=== PATIENT | female | born 1940 | race African-American/Black ===

== ENCOUNTER 2017-11-01 09:14 | Inpatient (IN) ==
[2017-11-01 10:49] LABS: Basophils % 0.2 % (0.0-0.8); Hematocrit 27.4 VOL% (35.7-47.0); Hemoglobin 7.9 GM/DL (12.0-16.0); Immature Granulocytes % 0.5 %; Immature Granulocytes Absolute 0.05 #; Lymphocytes # 0.8 10*3/uL (1.4-4.0); Lymphocytes % 7.5 % (21.3-54.2); Mean Corpuscular HGB Conc 28.8 GM/DL (32-36); Mean Corpuscular Hemoglobin 23 PG (27-34); Mean Corpuscular Volume 79.9 FL (87-102); Mean Platelet Volume 11.6 FL (9.6-12.0); Monocytes # 0.3 10*3/uL (0.11-0.8); Monocytes % 3.1 % (1.7-12.7); Neutrophils # 9.8 10*3/uL (1.4-7.4); Neutrophils % 88.7 % (38.7-73.9); Platelet Count 252 T/CUMM (130-400); Red Blood Count 3.43 MC/CUMM (3.8-5.5); Red Cell Distribution Width 16.1 % (9.3-17.3)
[2017-11-01 10:51] LABS: Apearance,Urine Slightly Hazy (Clear); Bacteria,Urine Occasional /HPF (Few); Bilirubin,Urine Negative (Negative); Blood, Urine Small mg/dL (Negative); Glucose,Urine (UA) >=500 mg/dL (Negative); Hyaline Casts,Urine 1 /LPF (0-3); Ketones,Urine Negative (Negative); Mucus,Urine Occasional /LPF (Occasional); Nitrite,Urine Negative (Negative); Protein,Urine 100 MG/DL; RBC,Urine 5 /HPF (0-4); Squamous Epithelial Cell,Urine Occasional /HPF (0-10); Urine Color Yellow (Yellow); Urine Specific Gravity 1.012 (1.001-1.035); Urine Urobilinogen < 2.0 EU/DL (0.2-1.0); WBC,Urine 3 /HPF (0-6)
[2017-11-01 11:16] LABS: Giant Platelets Few; Hypochromasia 1+; Platelet Estimate Normal
[2017-11-01 11:17] LABS: Microcytosis 1+; Polychromasia Few
[2017-11-01 11:19] LABS: Albumin 3.2 G/DL (3.4-5.0); Bilirubin,Total 0.6 MG/DL (0.2-1.0); Calcium 9.2 MG/DL (8.5-10.1); Osmolality,Calculated 290.7 MOS/KG (273-304); Potassium 4.6 MMOL/L (3.5-5.1); Total Protein 7.3 G/DL (6.4-8.3)
[2017-11-01 19:04] LABS: % Iron Saturation 4.7 % (18-50); Ferritin 7.5 ng/ml (8-252)
[2017-11-02 03:23] LABS: Basophils % 0.2 % (0.0-0.8); Hematocrit 19.9 VOL% (35.7-47.0); Immature Granulocytes % 0.6 %; Immature Granulocytes Absolute 0.06 #; Lymphocytes # 1.5 10*3/uL (1.4-4.0); Lymphocytes % 14.7 % (21.3-54.2); Mean Corpuscular HGB Conc 30.2 GM/DL (32-36); Mean Corpuscular Hemoglobin 23 PG (27-34); Mean Corpuscular Volume 76.2 FL (87-102); Mean Platelet Volume 11.7 FL (9.6-12.0); Monocytes # 0.9 10*3/uL (0.11-0.8); Monocytes % 8.5 % (1.7-12.7); NRBC # 0.02 10*3/uL; Neutrophils # 7.9 10*3/uL (1.4-7.4); Platelet Count 213 T/CUMM (130-400); Red Blood Count 2.61 MC/CUMM (3.8-5.5); Red Cell Distribution Width 16.4 % (9.3-17.3); White Blood Count 10.5 T/CUMM (4-12)
[2017-11-02 04:05] LABS: Troponin I Only 0.059 NG/ML (0.00-0.045)
[2017-11-02 04:14] LABS: Calcium 8.5 MG/DL (8.5-10.1); Osmolality,Calculated 280.5 MOS/KG (273-304); Potassium 4.1 MMOL/L (3.5-5.1)
[2017-11-02 04:18] LABS: Troponin I Only 0.064 NG/ML (0.00-0.045)
[2017-11-02 04:50] LABS: Basophils % 0.2 % (0.0-0.8); Hematocrit 20.4 VOL% (35.7-47.0); Immature Granulocytes % 0.8 %; Immature Granulocytes Absolute 0.08 #; Lymphocytes # 1.5 10*3/uL (1.4-4.0); Lymphocytes % 14.5 % (21.3-54.2); Mean Corpuscular HGB Conc 29.9 GM/DL (32-36); Mean Corpuscular Hemoglobin 23 PG (27-34); Mean Corpuscular Volume 76.7 FL (87-102); Mean Platelet Volume 11.3 FL (9.6-12.0); Monocytes # 0.9 10*3/uL (0.11-0.8); Monocytes % 8.7 % (1.7-12.7); NRBC # 0.02 10*3/uL; Neutrophils # 7.8 10*3/uL (1.4-7.4); Neutrophils % 75.8 % (38.7-73.9); Platelet Count 201 T/CUMM (130-400); Red Blood Count 2.66 MC/CUMM (3.8-5.5); Red Cell Distribution Width 16.5 % (9.3-17.3); White Blood Count 10.2 T/CUMM (4-12)
[2017-11-02 05:02] LABS: Hemoglobin 6.1 GM/DL (12.0-16.0)
[2017-11-02 06:40] LABS: Band Neutrophils 1 % (0-10); Hypochromasia 2+; Lymphocytes 20 % (20-55); Microcytosis 2+; Segmented Neutrophils 75 % (50-85); Tear Drop Cells Slight; Total Cells Counted 100
[2017-11-02 06:41] LABS: Ovalocytes Slight; Platelet Estimate Normal
[2017-11-02 08:34] LABS: Troponin I Only 0.052 NG/ML (0.00-0.045)
[2017-11-02 15:46] LABS: Hematocrit 27.7 VOL% (35.7-47.0)
[2017-11-02 15:49] LABS: Hemoglobin 8.5 GM/DL (12.0-16.0)
[2017-11-02 16:27] LABS: Apearance,Urine CLEAR (Clear); Bilirubin,Urine Negative (Negative); Blood, Urine Negative (Negative); Glucose,Urine (UA) Negative (Negative); Ketones,Urine Negative (Negative); Mucus,Urine Occasional /LPF (Occasional); Nitrite,Urine Negative (Negative); Protein,Urine Negative; Urine Color Straw (Yellow); Urine Specific Gravity 1.004 (1.001-1.035); Urine Urobilinogen < 2.0 EU/DL (0.2-1.0); WBC,Urine <1 /HPF (0-6)
[2017-11-03 04:55] LABS: Basophils % 0.4 % (0.0-0.8); Hematocrit 26.4 VOL% (35.7-47.0); Hemoglobin 8.3 GM/DL (12.0-16.0); Immature Granulocytes % 0.6 %; Immature Granulocytes Absolute 0.06 #; Lymphocytes # 1.5 10*3/uL (1.4-4.0); Lymphocytes % 15.9 % (21.3-54.2); Mean Corpuscular HGB Conc 31.4 GM/DL (32-36); Mean Corpuscular Hemoglobin 24 PG (27-34); Mean Corpuscular Volume 76.5 FL (87-102); Mean Platelet Volume 11.3 FL (9.6-12.0); Monocytes # 0.7 10*3/uL (0.11-0.8); Monocytes % 7.9 % (1.7-12.7); NRBC # 0.03 10*3/uL; Neutrophils % 75.2 % (38.7-73.9); Platelet Count 198 T/CUMM (130-400); Red Blood Count 3.45 MC/CUMM (3.8-5.5); Red Cell Distribution Width 15.7 % (9.3-17.3); White Blood Count 9.4 T/CUMM (4-12)
[2017-11-03 05:19] LABS: Calcium 8.7 MG/DL (8.5-10.1); Potassium 3.6 MMOL/L (3.5-5.1)
[2017-11-03 05:24] LABS: Risk Ratio 2.68; VLDL CHOLESTEROL 21.6 MG/DL
[2017-11-04 06:36] LABS: Basophils % 0.4 % (0.0-0.8); Eosinophils % 0.1 % (0.00-10.9); Hematocrit 33.3 VOL% (35.7-47.0); Immature Granulocytes % 0.5 %; Immature Granulocytes Absolute 0.05 #; Lymphocytes # 1.2 10*3/uL (1.4-4.0); Lymphocytes % 13.2 % (21.3-54.2); Mean Corpuscular HGB Conc 31.8 GM/DL (32-36); Mean Corpuscular Hemoglobin 25 PG (27-34); Mean Corpuscular Volume 79.3 FL (87-102); Mean Platelet Volume 10.6 FL (9.6-12.0); Monocytes # 0.9 10*3/uL (0.11-0.8); Monocytes % 9.3 % (1.7-12.7); NRBC # 0.02 10*3/uL; Neutrophils # 7.1 10*3/uL (1.4-7.4); Neutrophils % 76.5 % (38.7-73.9); Platelet Count 184 T/CUMM (130-400); Red Cell Distribution Width 15.3 % (9.3-17.3); White Blood Count 9.3 T/CUMM (4-12)
[2017-11-04 06:45] LABS: Calcium 8.6 MG/DL (8.5-10.1); Osmolality,Calculated 267.2 MOS/KG (273-304); Potassium 4.1 MMOL/L (3.5-5.1)
[2017-11-04 06:56] LABS: Hemoglobin 10.6 GM/DL (12.0-16.0)
[2017-11-05 04:57] LABS: Basophils # 0.1 10*3/uL (0.0-0.2); Basophils % 0.6 % (0.0-0.8); Eosinophils # 0.1 10*3/uL (0.0-0.87); Eosinophils % 0.9 % (0.00-10.9); Hematocrit 36.7 VOL% (35.7-47.0); Hemoglobin 11.3 GM/DL (12.0-16.0); Immature Granulocytes % 0.5 %; Immature Granulocytes Absolute 0.04 #; Lymphocytes # 1.3 10*3/uL (1.4-4.0); Lymphocytes % 16.5 % (21.3-54.2); Mean Corpuscular HGB Conc 30.8 GM/DL (32-36); Mean Corpuscular Hemoglobin 25 PG (27-34); Mean Corpuscular Volume 81.4 FL (87-102); Mean Platelet Volume 10.9 FL (9.6-12.0); Monocytes # 0.9 10*3/uL (0.11-0.8); Monocytes % 11.8 % (1.7-12.7); Neutrophils # 5.5 10*3/uL (1.4-7.4); Neutrophils % 69.7 % (38.7-73.9); Platelet Count 213 T/CUMM (130-400); Red Blood Count 4.51 MC/CUMM (3.8-5.5); Red Cell Distribution Width 15.7 % (9.3-17.3); White Blood Count 7.9 T/CUMM (4-12)
[2017-11-05 05:22] LABS: Calcium 8.8 MG/DL (8.5-10.1); Osmolality,Calculated 268.2 MOS/KG (273-304); Potassium 4.2 MMOL/L (3.5-5.1)
[2017-11-05 13:23] VITALS: BP 159/66
== END 2017-11-05 15:45 | DRG 392 ==
LOC: N.ED 09:14 → N.EDINP 11:48 → N.2W 12:44 → N.ICU 17:48 → N.TELEN 11-03 16:13
PROVIDERS: ADMIT Internal Medicine; ATTEND Internal Medicine

== ENCOUNTER 2018-02-21 17:54 | Inpatient (IN) ==
[2018-02-21] MEDS ORDERED: KETOROLAC 30 MG/1 ML VIAL IV STA (20:26)
[2018-02-21 22:34] LABS: Basophils % 0.2 % (0.0-0.8); Hematocrit 38.8 VOL% (35.7-47.0); Hemoglobin 12.1 GM/DL (12.0-16.0); Immature Granulocytes % 0.5 %; Immature Granulocytes Absolute 0.09 #; Lymphocytes # 0.6 10*3/uL (1.4-4.0); Lymphocytes % 3.6 % (21.3-54.2); Mean Corpuscular HGB Conc 31.2 GM/DL (32-36); Mean Corpuscular Hemoglobin 27 PG (27-34); Mean Platelet Volume 10.4 FL (9.6-12.0); Monocytes # 0.9 10*3/uL (0.11-0.8); Monocytes % 5.3 % (1.7-12.7); Neutrophils % 90.4 % (38.7-73.9); Platelet Count 171 T/CUMM (130-400); Red Blood Count 4.51 MC/CUMM (3.8-5.5); Red Cell Distribution Width 13.7 % (9.3-17.3); White Blood Count 17.7 T/CUMM (4-12)
[2018-02-21 23:05] LABS: Band Neutrophils 1 % (0-10); Lymphocytes 2 % (20-55); Platelet Estimate Normal; Segmented Neutrophils 93 % (50-85); Total Cells Counted 100
[2018-02-21 23:20] LABS: Albumin 3.5 G/DL (3.4-5.0); Apearance,Urine Slightly Hazy (Clear); Bacteria,Urine Occasional /HPF (Few); Bilirubin,Total 1.5 MG/DL (0.2-1.0); Bilirubin,Urine Negative (Negative); Blood, Urine Large mg/dL (Negative); Calcium 9.7 MG/DL (8.5-10.1); Glucose,Urine (UA) 50 mg/dL (Negative); Ketones,Urine 5 mg/dL (Negative); Mucus,Urine Occasional /LPF (Occasional); Nitrite,Urine Negative (Negative); Osmolality,Calculated 283.7 MOS/KG (273-304); Potassium 3.8 MMOL/L (3.5-5.1); Protein,Urine >=500 MG/DL; RBC,Urine 5 /HPF (0-4); Total Protein 7.7 G/DL (6.4-8.3); Urine Color Yellow (Yellow); Urine Specific Gravity 1.018 (1.001-1.035); Urine Urobilinogen < 2.0 EU/DL (0.2-1.0); WBC,Urine <1 /HPF (0-6)
[2018-02-22] MEDS ORDERED: DILTIAZEM 50 MG/10 ML VIAL IV STA ×2 (00:28→01:41)
[2018-02-22] MEDS ORDERED: DILTIAZEM 25 MG/5 ML VIAL IV ONE ×2 (00:36→00:41)
[2018-02-22] MEDS ORDERED: ONDANSETRON 4 MG/2 ML VIAL IV PRN (01:43)
[2018-02-22] MEDS ORDERED: PROMETHAZINE 25 MG/1 ML VIAL IM PRN (01:43)
[2018-02-22] MEDS ORDERED: PROMETHAZINE 25 MG TABLET PO PRN (01:43)
[2018-02-22] MEDS: dilTIAZem Drip 125 MG/125 ML PREMIX IV SCH (05:30)
[2018-02-22] MEDS: SODIUM CHLORIDE 0.9% 1,000 ML IV SCH ×2 (05:30→19:55)
[2018-02-22] MEDS ORDERED: DIGOXIN 0.5 MG/2 ML AMP IV ONE (08:14)
[2018-02-22] MEDS ORDERED: DEXTROSE 50% 25 GM/50 ML VIAL IV PRN (08:38)
[2018-02-22] MEDS ORDERED: GLUCAGON 1 MG VIAL IM PRN (08:38)
[2018-02-22 09:00] LABS: Basophils % 0.1 % (0.0-0.8); Hematocrit 36.9 VOL% (35.7-47.0); Hemoglobin 11.7 GM/DL (12.0-16.0); Immature Granulocytes % 0.6 %; Lymphocytes # 0.7 10*3/uL (1.4-4.0); Lymphocytes % 3.9 % (21.3-54.2); Mean Corpuscular HGB Conc 31.7 GM/DL (32-36); Mean Corpuscular Hemoglobin 28 PG (27-34); Mean Corpuscular Volume 86.6 FL (87-102); Mean Platelet Volume 11.4 FL (9.6-12.0); Monocytes # 0.7 10*3/uL (0.11-0.8); Monocytes % 3.9 % (1.7-12.7); Neutrophils # 15.6 10*3/uL (1.4-7.4); Neutrophils % 91.5 % (38.7-73.9); Platelet Count 148 T/CUMM (130-400); Red Blood Count 4.26 MC/CUMM (3.8-5.5)
[2018-02-22] MEDS ORDERED: NYSTATIN POWDER 15 GM BOTTLE TOP SCH (09:00)
[2018-02-22] MEDS: PANTOPRAZOLE 40 MG VIAL IV SCH (09:15)
[2018-02-22] MEDS: DOCUSATE SODIUM 100 MG CAPSULE PO SCH ×2 (09:16→22:32)
[2018-02-22 09:23] LABS: Band Neutrophils 3 % (0-10); Hypochromasia 1+; Lymphocytes 2 % (20-55); Platelet Estimate Normal; Segmented Neutrophils 90 % (50-85); Total Cells Counted 100
[2018-02-22 09:28] LABS: Calcium 9.3 MG/DL (8.5-10.1); Osmolality,Calculated 286.5 MOS/KG (273-304); Potassium 3.6 MMOL/L (3.5-5.1)
[2018-02-22 09:35] LABS: Troponin I 0.104 NG/ML (0.00-0.045)
[2018-02-22] MEDS: VANCOMYCIN INJ 1,250 MG in SODIUM CHLORIDE 0.9% 250 ML IV SCH ×2 (11:11→22:37)
[2018-02-22] MEDS: ASPIRIN EC 81 MG TABLET PO SCH (11:15)
[2018-02-22] MEDS: SOTALOL 80 MG TABLET PO SCH (11:15)
[2018-02-22] MEDS: FOSINOPRIL 10 MG TABLET PO SCH (13:22)
[2018-02-22] MEDS: INSULIN LISPRO 100 UNIT/ML SUBCUT SCH ×3 (13:23→22:33)
[2018-02-22] MEDS: PRIMIDONE 50 MG TABLET PO SCH ×2 (14:47→22:31)
[2018-02-22] MEDS: ACETAMINOPHEN 325 MG TABLET PO PRN (14:48)
[2018-02-22] MEDS: CARBIDOPA/LEVODOPA 25-100 MG TABLET PO SCH ×2 (14:49→22:32)
[2018-02-22] MEDS ORDERED: CHLORHEXIDINE 4% SOLN 118 ML BOTTLE TOP ONE (16:07)
[2018-02-22] MEDS ORDERED: SKIN HEALING OINT (AQUAPHOR) 50 GM TUBE TOP PRN (17:23)
[2018-02-22] MEDS: MUPIROCIN 2% OINT 22 GM TUBE TOP SCH (18:51)
[2018-02-22] MEDS: CLOTRIMAZOLE 1% CREAM 15 GM TUBE TOP SCH (18:52)
[2018-02-22] MEDS ORDERED: CLOTRIMAZOLE 1% CREAM 15 GM TUBE TOP SCH (21:00)
[2018-02-22] MEDS ORDERED: MUPIROCIN 2% OINT 22 GM TUBE TOP SCH (21:00)
[2018-02-22] MEDS: ATORVASTATIN 20 MG TABLET PO SCH (22:30)
[2018-02-22] MEDS: FERROUS SULFATE 325 MG TABLET PO SCH (22:32)
[2018-02-22] MEDS: INSULIN NPH/REGULAR 70/30 100 UNIT/ML SUBCUT SCH (22:32)
[2018-02-23] MEDS: dilTIAZem Drip 125 MG/125 ML PREMIX IV SCH (02:35)
[2018-02-23] MEDS: MUPIROCIN 2% OINT 22 GM TUBE TOP SCH ×3 (02:41→22:10)
[2018-02-23] MEDS: CLOTRIMAZOLE 1% CREAM 15 GM TUBE TOP SCH ×3 (02:41→22:07)
[2018-02-23 05:05] LABS: Basophils % 0.2 % (0.0-0.8); Hematocrit 30.8 VOL% (35.7-47.0); Hemoglobin 9.6 GM/DL (12.0-16.0); Immature Granulocytes % 0.7 %; Immature Granulocytes Absolute 0.08 #; Lymphocytes # 0.7 10*3/uL (1.4-4.0); Lymphocytes % 6.1 % (21.3-54.2); Mean Corpuscular HGB Conc 31.2 GM/DL (32-36); Mean Corpuscular Hemoglobin 27 PG (27-34); Mean Corpuscular Volume 86.8 FL (87-102); Mean Platelet Volume 11.1 FL (9.6-12.0); Monocytes # 0.7 10*3/uL (0.11-0.8); Monocytes % 5.7 % (1.7-12.7); Neutrophils # 10.3 10*3/uL (1.4-7.4); Neutrophils % 87.3 % (38.7-73.9); Platelet Count 134 T/CUMM (130-400); Red Blood Count 3.55 MC/CUMM (3.8-5.5); Red Cell Distribution Width 13.7 % (9.3-17.3); White Blood Count 11.8 T/CUMM (4-12)
[2018-02-23 05:34] LABS: Calcium 8.5 MG/DL (8.5-10.1); Osmolality,Calculated 280.4 MOS/KG (273-304); Potassium 3.3 MMOL/L (3.5-5.1)
[2018-02-23] MEDS: INSULIN LISPRO 100 UNIT/ML SUBCUT SCH ×4 (10:04→22:05)
[2018-02-23] MEDS: FERROUS SULFATE 325 MG TABLET PO SCH ×3 (10:10→22:00)
[2018-02-23] MEDS: MAGNESIUM OXIDE 400 MG TABLET PO SCH (11:02)
[2018-02-23] MEDS: ACETAMINOPHEN 325 MG TABLET PO PRN (11:03)
[2018-02-23] MEDS: ASPIRIN EC 81 MG TABLET PO SCH (11:04)
[2018-02-23] MEDS: SERTRALINE 25 MG TABLET PO SCH (11:04)
[2018-02-23] MEDS: CARBIDOPA/LEVODOPA 25-100 MG TABLET PO SCH ×3 (11:07→22:01)
[2018-02-23] MEDS: DOCUSATE SODIUM 100 MG CAPSULE PO SCH ×2 (11:07→22:00)
[2018-02-23] MEDS: POTASSIUM CHLORIDE 20 MEQ TABLET PO SCH (11:08)
[2018-02-23] MEDS: SOTALOL 80 MG TABLET PO SCH ×2 (11:09→21:59)
[2018-02-23] MEDS: PRIMIDONE 50 MG TABLET PO SCH ×3 (11:10→22:01)
[2018-02-23] MEDS: INSULIN NPH/REGULAR 70/30 100 UNIT/ML SUBCUT SCH ×2 (11:12→22:15)
[2018-02-23] MEDS: CALCIUM (CARBONATE)/VITAMIN D 600 MG-400 UNIT TABLET PO SCH (11:12)
[2018-02-23] MEDS: FOSINOPRIL 10 MG TABLET PO SCH (11:19)
[2018-02-23] MEDS: PANTOPRAZOLE 40 MG VIAL IV SCH (11:20)
[2018-02-23] MEDS: PANTOPRAZOLE 40 MG TABLET PO SCH (12:20)
[2018-02-23] MEDS: VANCOMYCIN INJ 1,250 MG in SODIUM CHLORIDE 0.9% 250 ML IV SCH ×2 (12:50→22:58)
[2018-02-23] MEDS: ATORVASTATIN 20 MG TABLET PO SCH (22:07)
[2018-02-23] MEDS: SODIUM CHLORIDE 0.9% 1,000 ML IV SCH (23:37)
[2018-02-24 04:42] LABS: Basophils % 0.2 % (0.0-0.8); Eosinophils % 0.2 % (0.00-10.9); Hematocrit 30.8 VOL% (35.7-47.0); Hemoglobin 9.2 GM/DL (12.0-16.0); Immature Granulocytes % 0.7 %; Immature Granulocytes Absolute 0.06 #; Lymphocytes # 0.7 10*3/uL (1.4-4.0); Lymphocytes % 8.3 % (21.3-54.2); Mean Corpuscular HGB Conc 29.9 GM/DL (32-36); Mean Corpuscular Hemoglobin 26 PG (27-34); Mean Corpuscular Volume 87.7 FL (87-102); Mean Platelet Volume 11.5 FL (9.6-12.0); Monocytes # 0.8 10*3/uL (0.11-0.8); Monocytes % 9.5 % (1.7-12.7); Neutrophils # 6.7 10*3/uL (1.4-7.4); Neutrophils % 81.1 % (38.7-73.9); Platelet Count 146 T/CUMM (130-400); Red Blood Count 3.51 MC/CUMM (3.8-5.5); Red Cell Distribution Width 13.7 % (9.3-17.3); White Blood Count 8.3 T/CUMM (4-12)
[2018-02-24 06:27] LABS: Calcium 8.5 MG/DL (8.5-10.1); Osmolality,Calculated 276.7 MOS/KG (273-304); Potassium 3.6 MMOL/L (3.5-5.1)
[2018-02-24] MEDS: VANCOMYCIN INJ 1,250 MG in SODIUM CHLORIDE 0.9% 250 ML IV SCH ×2 (09:13→23:55)
[2018-02-24] MEDS: INSULIN NPH/REGULAR 70/30 100 UNIT/ML SUBCUT SCH ×2 (09:15→23:07)
[2018-02-24] MEDS: CLOTRIMAZOLE 1% CREAM 15 GM TUBE TOP SCH ×2 (09:18→23:08)
[2018-02-24] MEDS: SOTALOL 80 MG TABLET PO SCH ×2 (09:19→22:22)
[2018-02-24] MEDS: MUPIROCIN 2% OINT 22 GM TUBE TOP SCH ×2 (09:19→23:07)
[2018-02-24] MEDS: CARBIDOPA/LEVODOPA 25-100 MG TABLET PO SCH ×3 (09:20→22:24)
[2018-02-24] MEDS: FERROUS SULFATE 325 MG TABLET PO SCH ×2 (09:20→22:24)
[2018-02-24] MEDS: PANTOPRAZOLE 40 MG TABLET PO SCH (09:20)
[2018-02-24] MEDS: MAGNESIUM OXIDE 400 MG TABLET PO SCH (09:20)
[2018-02-24] MEDS: CALCIUM (CARBONATE)/VITAMIN D 600 MG-400 UNIT TABLET PO SCH (09:20)
[2018-02-24] MEDS: FOSINOPRIL 10 MG TABLET PO SCH (09:20)
[2018-02-24] MEDS: DOCUSATE SODIUM 100 MG CAPSULE PO SCH ×2 (09:20→22:24)
[2018-02-24] MEDS: POTASSIUM CHLORIDE 20 MEQ TABLET PO SCH (09:21)
[2018-02-24] MEDS: PRIMIDONE 50 MG TABLET PO SCH ×3 (09:21→22:24)
[2018-02-24] MEDS: ASPIRIN EC 81 MG TABLET PO SCH (09:21)
[2018-02-24] MEDS: SERTRALINE 25 MG TABLET PO SCH (09:21)
[2018-02-24] MEDS: dilTIAZem Drip 125 MG/125 ML PREMIX IV SCH (09:22)
[2018-02-24] MEDS: INSULIN LISPRO 100 UNIT/ML SUBCUT SCH ×4 (09:22→22:26)
[2018-02-24] MEDS: PANTOPRAZOLE 40 MG VIAL IV SCH (09:23)
[2018-02-24] MEDS: ACETAMINOPHEN 325 MG TABLET PO PRN ×2 (09:44→23:30)
[2018-02-24] MEDS: SODIUM CHLORIDE 0.9% 1,000 ML IV SCH (09:46)
[2018-02-24] MEDS: ATORVASTATIN 20 MG TABLET PO SCH (22:24)
[2018-02-25 03:47] LABS: Basophils % 0.2 % (0.0-0.8); Eosinophils % 0.1 % (0.00-10.9); Hemoglobin 8.4 GM/DL (12.0-16.0); Immature Granulocytes % 0.5 %; Immature Granulocytes Absolute 0.04 #; Lymphocytes % 11.5 % (21.3-54.2); Mean Corpuscular HGB Conc 31.1 GM/DL (32-36); Mean Corpuscular Hemoglobin 27 PG (27-34); Mean Corpuscular Volume 86.3 FL (87-102); Mean Platelet Volume 11.6 FL (9.6-12.0); Monocytes % 11.9 % (1.7-12.7); Neutrophils # 6.6 10*3/uL (1.4-7.4); Neutrophils % 75.8 % (38.7-73.9); Platelet Count 130 T/CUMM (130-400); Red Blood Count 3.13 MC/CUMM (3.8-5.5); Red Cell Distribution Width 13.8 % (9.3-17.3); White Blood Count 8.7 T/CUMM (4-12)
[2018-02-25 04:02] LABS: Calcium 8.1 MG/DL (8.5-10.1); Osmolality,Calculated 276.7 MOS/KG (273-304); Potassium 3.7 MMOL/L (3.5-5.1)
[2018-02-25] MEDS: dilTIAZem Drip 125 MG/125 ML PREMIX IV SCH (06:57)
[2018-02-25] MEDS: PANTOPRAZOLE 40 MG VIAL IV SCH (09:18)
[2018-02-25] MEDS: MAGNESIUM OXIDE 400 MG TABLET PO SCH (09:45)
[2018-02-25] MEDS: SOTALOL 80 MG TABLET PO SCH ×2 (09:45→21:25)
[2018-02-25] MEDS: ACETAMINOPHEN 325 MG TABLET PO PRN ×2 (09:46→21:26)
[2018-02-25] MEDS: POTASSIUM CHLORIDE 20 MEQ TABLET PO SCH (09:46)
[2018-02-25] MEDS: SERTRALINE 25 MG TABLET PO SCH (09:46)
[2018-02-25] MEDS: CARBIDOPA/LEVODOPA 25-100 MG TABLET PO SCH ×3 (09:46→21:25)
[2018-02-25] MEDS: PANTOPRAZOLE 40 MG TABLET PO SCH (09:47)
[2018-02-25] MEDS: ASPIRIN EC 81 MG TABLET PO SCH (09:47)
[2018-02-25] MEDS: FERROUS SULFATE 325 MG TABLET PO SCH ×2 (09:47→21:26)
[2018-02-25] MEDS: CALCIUM (CARBONATE)/VITAMIN D 600 MG-400 UNIT TABLET PO SCH (09:48)
[2018-02-25] MEDS: DOCUSATE SODIUM 100 MG CAPSULE PO SCH ×2 (09:48→21:25)
[2018-02-25] MEDS: PRIMIDONE 50 MG TABLET PO SCH ×3 (09:48→21:25)
[2018-02-25] MEDS: FOSINOPRIL 10 MG TABLET PO SCH (09:48)
[2018-02-25] MEDS: INSULIN NPH/REGULAR 70/30 100 UNIT/ML SUBCUT SCH ×2 (10:00→22:31)
[2018-02-25] MEDS: INSULIN LISPRO 100 UNIT/ML SUBCUT SCH ×4 (10:05→22:30)
[2018-02-25] MEDS: VANCOMYCIN INJ 1,250 MG in SODIUM CHLORIDE 0.9% 250 ML IV SCH (13:34)
[2018-02-25] MEDS ORDERED: LIDOCAINE 1% 20 ML VIAL ONE (13:37)
[2018-02-25] MEDS ORDERED: BUPIVACAINE 0.5% 50 ML VIAL ONE (13:38)
[2018-02-25] MEDS: MUPIROCIN 2% OINT 22 GM TUBE TOP SCH ×2 (19:01→22:33)
[2018-02-25] MEDS: CLOTRIMAZOLE 1% CREAM 15 GM TUBE TOP SCH ×2 (19:01→22:32)
[2018-02-25] MEDS: RIFAMPIN INJ 600 MG in SODIUM CHLORIDE 0.9% 100 ML IV SCH (19:02)
[2018-02-25] MEDS: valACYclovir 500 MG TABLET PO SCH (21:25)
[2018-02-26 03:41] LABS: Basophils % 0.5 % (0.0-0.8); Eosinophils # 0.1 10*3/uL (0.0-0.87); Eosinophils % 1.1 % (0.00-10.9); Hematocrit 26.9 VOL% (35.7-47.0); Hemoglobin 8.4 GM/DL (12.0-16.0); Immature Granulocytes % 0.7 %; Immature Granulocytes Absolute 0.06 #; Lymphocytes # 1.2 10*3/uL (1.4-4.0); Lymphocytes % 13.5 % (21.3-54.2); Mean Corpuscular HGB Conc 31.2 GM/DL (32-36); Mean Corpuscular Hemoglobin 27 PG (27-34); Mean Corpuscular Volume 86.5 FL (87-102); Mean Platelet Volume 11.4 FL (9.6-12.0); Monocytes # 1.1 10*3/uL (0.11-0.8); Neutrophils # 6.4 10*3/uL (1.4-7.4); Neutrophils % 72.2 % (38.7-73.9); Platelet Count 128 T/CUMM (130-400); Red Blood Count 3.11 MC/CUMM (3.8-5.5); Red Cell Distribution Width 13.9 % (9.3-17.3); White Blood Count 8.9 T/CUMM (4-12)
[2018-02-26 04:08] LABS: Calcium 8.1 MG/DL (8.5-10.1); Osmolality,Calculated 273.7 MOS/KG (273-304); Potassium 3.4 MMOL/L (3.5-5.1)
[2018-02-26] MEDS: dilTIAZem Drip 125 MG/125 ML PREMIX IV SCH (06:44)
[2018-02-26] MEDS ORDERED: traMADol 50 MG TABLET PO PRN (08:42)
[2018-02-26] MEDS: FOSINOPRIL 10 MG TABLET PO SCH (09:41)
[2018-02-26] MEDS: SOTALOL 80 MG TABLET PO SCH ×2 (09:43→22:18)
[2018-02-26] MEDS: INSULIN LISPRO 100 UNIT/ML SUBCUT SCH ×3 (09:43→17:00)
[2018-02-26] MEDS: CALCIUM (CARBONATE)/VITAMIN D 600 MG-400 UNIT TABLET PO SCH (09:43)
[2018-02-26] MEDS: PANTOPRAZOLE 40 MG TABLET PO SCH (09:43)
[2018-02-26] MEDS: PRIMIDONE 50 MG TABLET PO SCH ×3 (09:44→22:19)
[2018-02-26] MEDS: DOCUSATE SODIUM 100 MG CAPSULE PO SCH ×2 (09:44→22:19)
[2018-02-26] MEDS: ASPIRIN EC 81 MG TABLET PO SCH (09:44)
[2018-02-26] MEDS: CARBIDOPA/LEVODOPA 25-100 MG TABLET PO SCH ×3 (09:44→22:19)
[2018-02-26] MEDS: valACYclovir 500 MG TABLET PO SCH ×2 (09:44→22:30)
[2018-02-26] MEDS: MAGNESIUM OXIDE 400 MG TABLET PO SCH (09:44)
[2018-02-26] MEDS: SERTRALINE 25 MG TABLET PO SCH (09:44)
[2018-02-26] MEDS: FERROUS SULFATE 325 MG TABLET PO SCH ×2 (09:44→22:19)
[2018-02-26] MEDS: POTASSIUM CHLORIDE 20 MEQ TABLET PO SCH (09:45)
[2018-02-26] MEDS: INSULIN NPH/REGULAR 70/30 100 UNIT/ML SUBCUT SCH (09:45)
[2018-02-26] MEDS: PANTOPRAZOLE 40 MG VIAL IV SCH (09:46)
[2018-02-26] MEDS: POTASSIUM CHLORIDE 20 MEQ TABLET PO PRN ×2 (12:39→15:09)
[2018-02-26] MEDS: RIFAMPIN INJ 600 MG in SODIUM CHLORIDE 0.9% 100 ML IV SCH (15:15)
[2018-02-26] MEDS: CLOTRIMAZOLE 1% CREAM 15 GM TUBE TOP SCH (17:00)
[2018-02-26] MEDS: MUPIROCIN 2% OINT 22 GM TUBE TOP SCH (17:00)
[2018-02-27] MEDS: INSULIN LISPRO 100 UNIT/ML SUBCUT SCH ×5 (01:28→21:36)
[2018-02-27] MEDS: MUPIROCIN 2% OINT 22 GM TUBE TOP SCH ×3 (01:28→21:36)
[2018-02-27] MEDS: INSULIN NPH/REGULAR 70/30 100 UNIT/ML SUBCUT SCH ×3 (01:28→21:35)
[2018-02-27] MEDS: CLOTRIMAZOLE 1% CREAM 15 GM TUBE TOP SCH ×3 (01:29→21:36)
[2018-02-27] MEDS: PANTOPRAZOLE 40 MG TABLET PO SCH (10:20)
[2018-02-27] MEDS: SOTALOL 80 MG TABLET PO SCH ×2 (10:22→21:27)
[2018-02-27] MEDS: PANTOPRAZOLE 40 MG VIAL IV SCH (10:22)
[2018-02-27] MEDS: SERTRALINE 25 MG TABLET PO SCH (10:23)
[2018-02-27] MEDS: CALCIUM (CARBONATE)/VITAMIN D 600 MG-400 UNIT TABLET PO SCH (10:23)
[2018-02-27] MEDS: valACYclovir 500 MG TABLET PO SCH ×2 (10:23→21:28)
[2018-02-27] MEDS: DOCUSATE SODIUM 100 MG CAPSULE PO SCH ×2 (10:23→21:28)
[2018-02-27] MEDS: PRIMIDONE 50 MG TABLET PO SCH ×3 (10:24→21:28)
[2018-02-27] MEDS: FERROUS SULFATE 325 MG TABLET PO SCH ×2 (10:24→21:28)
[2018-02-27] MEDS: FOSINOPRIL 10 MG TABLET PO SCH (10:24)
[2018-02-27] MEDS: ASPIRIN EC 81 MG TABLET PO SCH (10:24)
[2018-02-27] MEDS: CARBIDOPA/LEVODOPA 25-100 MG TABLET PO SCH ×3 (10:25→21:28)
[2018-02-27] MEDS: POTASSIUM CHLORIDE 20 MEQ TABLET PO SCH (10:25)
[2018-02-27] MEDS: MAGNESIUM OXIDE 400 MG TABLET PO SCH (10:25)
[2018-02-27] MEDS: RIFAMPIN INJ 600 MG in SODIUM CHLORIDE 0.9% 100 ML IV SCH (15:58)
[2018-02-27] MEDS: dilTIAZem Drip 125 MG/125 ML PREMIX IV SCH (21:36)
[2018-02-28] MEDS: dilTIAZem Drip 125 MG/125 ML PREMIX IV SCH (06:24)
[2018-02-28] MEDS: PANTOPRAZOLE 40 MG VIAL IV SCH (09:40)
[2018-02-28] MEDS: SOTALOL 80 MG TABLET PO SCH ×2 (09:41→20:51)
[2018-02-28] MEDS: INSULIN NPH/REGULAR 70/30 100 UNIT/ML SUBCUT SCH ×2 (09:41→20:56)
[2018-02-28] MEDS: FOSINOPRIL 10 MG TABLET PO SCH (09:41)
[2018-02-28] MEDS: SERTRALINE 25 MG TABLET PO SCH (09:42)
[2018-02-28] MEDS: CARBIDOPA/LEVODOPA 25-100 MG TABLET PO SCH ×3 (09:42→20:53)
[2018-02-28] MEDS: ASPIRIN EC 81 MG TABLET PO SCH (09:42)
[2018-02-28] MEDS: valACYclovir 500 MG TABLET PO SCH ×2 (09:42→20:52)
[2018-02-28] MEDS: DOCUSATE SODIUM 100 MG CAPSULE PO SCH ×2 (09:42→20:52)
[2018-02-28] MEDS: POTASSIUM CHLORIDE 20 MEQ TABLET PO SCH (09:42)
[2018-02-28] MEDS: CALCIUM (CARBONATE)/VITAMIN D 600 MG-400 UNIT TABLET PO SCH (09:42)
[2018-02-28] MEDS: FERROUS SULFATE 325 MG TABLET PO SCH ×2 (09:42→20:53)
[2018-02-28] MEDS: PRIMIDONE 50 MG TABLET PO SCH ×3 (09:42→20:51)
[2018-02-28] MEDS: MAGNESIUM OXIDE 400 MG TABLET PO SCH (09:43)
[2018-02-28] MEDS: INSULIN LISPRO 100 UNIT/ML SUBCUT SCH ×4 (09:49→20:56)
[2018-02-28] MEDS: CLOTRIMAZOLE 1% CREAM 15 GM TUBE TOP SCH ×2 (09:49→20:57)
[2018-02-28] MEDS: PANTOPRAZOLE 40 MG TABLET PO SCH (09:49)
[2018-02-28] MEDS: MUPIROCIN 2% OINT 22 GM TUBE TOP SCH ×2 (09:49→20:50)
[2018-02-28] MEDS: RIFAMPIN INJ 600 MG in SODIUM CHLORIDE 0.9% 100 ML IV SCH (15:34)
[2018-02-28] MEDS: ACYCLOVIR 5% OINT 5 GM TUBE TOP SCH (20:58)
[2018-03-01 03:13] LABS: Basophils % 0.4 % (0.0-0.8); Eosinophils # 0.2 10*3/uL (0.0-0.87); Hematocrit 27.7 VOL% (35.7-47.0); Hemoglobin 8.6 GM/DL (12.0-16.0); Immature Granulocytes Absolute 0.07 #; Lymphocytes # 1.5 10*3/uL (1.4-4.0); Lymphocytes % 19.8 % (21.3-54.2); Mean Corpuscular Hemoglobin 27 PG (27-34); Mean Platelet Volume 11.2 FL (9.6-12.0); Monocytes # 0.7 10*3/uL (0.11-0.8); Monocytes % 9.4 % (1.7-12.7); Neutrophils # 4.9 10*3/uL (1.4-7.4); Neutrophils % 66.4 % (38.7-73.9); Platelet Count 212 T/CUMM (130-400); Red Blood Count 3.22 MC/CUMM (3.8-5.5); Red Cell Distribution Width 13.8 % (9.3-17.3); White Blood Count 7.3 T/CUMM (4-12)
[2018-03-01 03:32] LABS: Calcium 8.2 MG/DL (8.5-10.1); Potassium 4.7 MMOL/L (3.5-5.1)
[2018-03-01] MEDS: dilTIAZem Drip 125 MG/125 ML PREMIX IV SCH (04:55)
[2018-03-01] MEDS: INSULIN LISPRO 100 UNIT/ML SUBCUT SCH ×4 (08:03→20:25)
[2018-03-01] MEDS: ASPIRIN EC 81 MG TABLET PO SCH (08:52)
[2018-03-01] MEDS: valACYclovir 500 MG TABLET PO SCH ×2 (08:52→20:25)
[2018-03-01] MEDS: PRIMIDONE 50 MG TABLET PO SCH ×3 (08:52→20:25)
[2018-03-01] MEDS: SOTALOL 80 MG TABLET PO SCH ×2 (08:52→20:23)
[2018-03-01] MEDS: CALCIUM (CARBONATE)/VITAMIN D 600 MG-400 UNIT TABLET PO SCH (08:52)
[2018-03-01] MEDS: INSULIN NPH/REGULAR 70/30 100 UNIT/ML SUBCUT SCH ×2 (08:52→20:25)
[2018-03-01] MEDS: DOCUSATE SODIUM 100 MG CAPSULE PO SCH ×2 (08:52→20:24)
[2018-03-01] MEDS: FERROUS SULFATE 325 MG TABLET PO SCH ×2 (08:52→20:24)
[2018-03-01] MEDS: MAGNESIUM OXIDE 400 MG TABLET PO SCH (08:52)
[2018-03-01] MEDS: SERTRALINE 25 MG TABLET PO SCH (08:52)
[2018-03-01] MEDS: POTASSIUM CHLORIDE 20 MEQ TABLET PO SCH (08:52)
[2018-03-01] MEDS: CARBIDOPA/LEVODOPA 25-100 MG TABLET PO SCH ×3 (08:53→20:26)
[2018-03-01] MEDS: PANTOPRAZOLE 40 MG VIAL IV SCH (08:53)
[2018-03-01] MEDS: CLOTRIMAZOLE 1% CREAM 15 GM TUBE TOP SCH ×2 (08:59→20:27)
[2018-03-01] MEDS: ACYCLOVIR 5% OINT 5 GM TUBE TOP SCH ×3 (09:00→20:28)
[2018-03-01] MEDS: MUPIROCIN 2% OINT 22 GM TUBE TOP SCH ×2 (09:01→20:23)
[2018-03-01] MEDS: PANTOPRAZOLE 40 MG TABLET PO SCH (09:01)
[2018-03-01] MEDS: RIFAMPIN INJ 600 MG in SODIUM CHLORIDE 0.9% 100 ML IV SCH (15:16)
[2018-03-01] MEDS: FOSINOPRIL 20 MG TABLET PO SCH (15:55)
[2018-03-01] MEDS: FOSINOPRIL 10 MG TABLET PO SCH (16:06)
[2018-03-02 04:05] LABS: Basophils % 0.5 % (0.0-0.8); Eosinophils # 0.2 10*3/uL (0.0-0.87); Eosinophils % 2.3 % (0.00-10.9); Hematocrit 27.9 VOL% (35.7-47.0); Hemoglobin 8.4 GM/DL (12.0-16.0); Immature Granulocytes Absolute 0.08 #; Lymphocytes # 1.5 10*3/uL (1.4-4.0); Lymphocytes % 18.6 % (21.3-54.2); Mean Corpuscular HGB Conc 30.1 GM/DL (32-36); Mean Corpuscular Hemoglobin 26 PG (27-34); Mean Corpuscular Volume 85.8 FL (87-102); Mean Platelet Volume 11.3 FL (9.6-12.0); Monocytes # 0.6 10*3/uL (0.11-0.8); Monocytes % 6.9 % (1.7-12.7); NRBC # 0.02 10*3/uL; Neutrophils # 5.6 10*3/uL (1.4-7.4); Neutrophils % 70.7 % (38.7-73.9); Platelet Count 271 T/CUMM (130-400); Red Blood Count 3.25 MC/CUMM (3.8-5.5); Red Cell Distribution Width 13.9 % (9.3-17.3)
[2018-03-02 04:35] LABS: Calcium 8.1 MG/DL (8.5-10.1); Osmolality,Calculated 272.8 MOS/KG (273-304); Potassium 4.2 MMOL/L (3.5-5.1)
[2018-03-02] MEDS: dilTIAZem Drip 125 MG/125 ML PREMIX IV SCH (04:58)
[2018-03-02] MEDS: DOCUSATE SODIUM 100 MG CAPSULE PO SCH (09:51)
[2018-03-02] MEDS: FERROUS SULFATE 325 MG TABLET PO SCH (09:51)
[2018-03-02] MEDS: SOTALOL 80 MG TABLET PO SCH (09:51)
[2018-03-02] MEDS: valACYclovir 500 MG TABLET PO SCH (09:54)
[2018-03-02] MEDS: CALCIUM (CARBONATE)/VITAMIN D 600 MG-400 UNIT TABLET PO SCH (09:54)
[2018-03-02] MEDS: ASPIRIN EC 81 MG TABLET PO SCH (09:55)
[2018-03-02] MEDS: CARBIDOPA/LEVODOPA 25-100 MG TABLET PO SCH ×2 (09:55→15:00)
[2018-03-02] MEDS: POTASSIUM CHLORIDE 20 MEQ TABLET PO SCH (09:55)
[2018-03-02] MEDS: SERTRALINE 25 MG TABLET PO SCH (09:56)
[2018-03-02] MEDS: FOSINOPRIL 20 MG TABLET PO SCH (10:09)
[2018-03-02] MEDS: MAGNESIUM OXIDE 400 MG TABLET PO SCH (10:09)
[2018-03-02] MEDS: INSULIN NPH/REGULAR 70/30 100 UNIT/ML SUBCUT SCH (10:09)
[2018-03-02] MEDS: INSULIN LISPRO 100 UNIT/ML SUBCUT SCH ×2 (10:09→15:00)
[2018-03-02] MEDS: PANTOPRAZOLE 40 MG VIAL IV SCH (10:10)
[2018-03-02] MEDS: PRIMIDONE 50 MG TABLET PO SCH ×2 (10:10→15:00)
[2018-03-02] MEDS: ACYCLOVIR 5% OINT 5 GM TUBE TOP SCH (10:13)
[2018-03-02] MEDS: PANTOPRAZOLE 40 MG TABLET PO SCH (10:59)
[2018-03-02] MEDS: CLOTRIMAZOLE 1% CREAM 15 GM TUBE TOP SCH (15:00)
[2018-03-02] MEDS: MUPIROCIN 2% OINT 22 GM TUBE TOP SCH (15:00)
[2018-03-02 16:38] VITALS: BP 130/55
== END 2018-03-02 15:27 | DRG 255 ==
LOC: N.ED 17:54 → N.EDINP 02-22 01:43 → N.TELES 02-22 02:27
PROVIDERS: ADMIT Internal Medicine; ATTEND Internal Medicine

== ENCOUNTER 2018-12-29 12:45 | Inpatient (IN) ==
[2018-12-29] MEDS ORDERED: GENTAMICIN INJ 120 MG in SODIUM CHLORIDE 0.9% 100 ML IV STA (13:10)
[2018-12-29] MEDS ORDERED: GENTAMICIN 80 MG/2 ML VIAL ONE (13:34)
[2018-12-29 14:06] LABS: Apearance,Urine CLEAR (Clear); Bacteria,Urine Many /HPF (Few); Bilirubin,Urine Negative (Negative); Blood, Urine Small mg/dL (Negative); Glucose,Urine (UA) Negative (Negative); Ketones,Urine Negative (Negative); Nitrite,Urine Negative (Negative); Protein,Urine Negative; Squamous Epithelial Cell,Urine Occasional /HPF (0-10); Transitional Epi Cells,Urine Occasional /HPF (<1); Urine Color Yellow (Yellow); Urine Specific Gravity 1.017 (1.001-1.035); WBC,Urine 13 /HPF (0-6)
[2018-12-29 14:11] LABS: Alanine Aminotransferase 14 U/L (13-56); Albumin 3.4 G/DL (3.4-5.0); Alkaline Phosphatase 92 U/L (45-117); Aspartate Amino Transferase 24 U/L (0-37); Bilirubin,Total < 0.39 MG/DL (0.2-1.0); Blood Urea Nitrogen 15 MG/DL (7-18); Calcium 9.2 MG/DL (8.5-10.1); Estimated Glom Filtration Rate 59 ML/MIN; Glucose 116 MG/DL (74-106); Osmolality,Calculated 280.4 MOS/KG (273-304); Total Protein 7.4 G/DL (6.4-8.3)
[2018-12-29 14:20] LABS: Eosinophils # 0.1 10*3/uL (0.0-0.87); Eosinophils % 3.6 % (0.00-10.9); Hematocrit 32.2 VOL% (35.7-47.0); Hemoglobin 9.9 GM/DL (12.0-16.0); Immature Granulocytes % 0.3 %; Immature Granulocytes Absolute 0.01 #; Lymphocytes # 0.8 10*3/uL (1.4-4.0); Lymphocytes % 21.1 % (21.3-54.2); Mean Corpuscular HGB Conc 30.7 GM/DL (32-36); Mean Platelet Volume 11.6 FL (9.6-12.0); Monocytes % 8.5 % (1.7-12.7); Neutrophils % 65.5 % (38.7-73.9); Platelet Count 195 T/CUMM (130-400); Red Blood Count 3.54 MC/CUMM (3.8-5.5); Red Cell Distribution Width 12.4 % (9.3-17.3); White Blood Count 3.9 T/CUMM (4-12)
[2018-12-29 14:27] LABS: PT Patient Result 10.8 SECS (9.6-12.2); Partial Thromboplastin Time 26.9 SECS (20.8-36.0)
[2018-12-29 15:23] LABS: Folate 23.1 NG/ML (5.4-24.0)
[2018-12-29 15:26] LABS: % Iron Saturation 12.3 % (18-50); Ferritin 15.1 ng/ml (8-252)
[2018-12-29] MEDS ORDERED: ONDANSETRON 4 MG/2 ML VIAL IV PRN (16:25)
[2018-12-29] MEDS ORDERED: ACETAMINOPHEN 325 MG TABLET PO PRN (16:25)
[2018-12-29] MEDS: SODIUM CHLORIDE 0.9% 1,000 ML IV SCH (18:21)
[2018-12-29] MEDS: DOCUSATE SODIUM 100 MG CAPSULE PO SCH (20:42)
[2018-12-29] MEDS: QUEtiapine 100 MG TABLET PO SCH (20:42)
[2018-12-29] MEDS: ATORVASTATIN 10 MG TABLET PO SCH (20:42)
[2018-12-29] MEDS: CALCIUM (CARBONATE)/VITAMIN D 600 MG-400 UNIT TABLET PO SCH (20:42)
[2018-12-29] MEDS: FERROUS SULFATE 325 MG TABLET PO SCH (20:42)
[2018-12-29] MEDS: carvediloL 12.5 MG TABLET PO SCH (20:43)
[2018-12-29] MEDS: CARBIDOPA/LEVODOPA 25-100 MG TABLET PO SCH (20:43)
[2018-12-29] MEDS: PRIMIDONE 50 MG TABLET PO SCH (20:43)
[2018-12-29] MEDS ORDERED: NITROFURANTOIN MACRO/MONO 100 MG CAPSULE PO SCH (21:00)
[2018-12-30] MEDS: SODIUM CHLORIDE 0.9% 1,000 ML IV SCH ×2 (02:22→17:09)
[2018-12-30 05:13] LABS: Basophils % 1.2 % (0.0-0.8); Eosinophils # 0.1 10*3/uL (0.0-0.87); Eosinophils % 5.1 % (0.00-10.9); Hematocrit 30.7 VOL% (35.7-47.0); Hemoglobin 9.2 GM/DL (12.0-16.0); Immature Granulocytes % 0.4 %; Immature Granulocytes Absolute 0.01 #; Lymphocytes # 0.9 10*3/uL (1.4-4.0); Lymphocytes % 33.5 % (21.3-54.2); Mean Corpuscular Volume 91.4 FL (87-102); Mean Platelet Volume 11.5 FL (9.6-12.0); Monocytes % 9.3 % (1.7-12.7); Neutrophils % 50.5 % (38.7-73.9); Platelet Count 160 T/CUMM (130-400); Red Blood Count 3.36 MC/CUMM (3.8-5.5); Red Cell Distribution Width 12.4 % (9.3-17.3); White Blood Count 2.6 T/CUMM (4-12)
[2018-12-30 05:37] LABS: Calcium 8.4 MG/DL (8.5-10.1); Osmolality,Calculated 283.1 MOS/KG (273-304)
[2018-12-30 05:41] LABS: Hypochromasia 1+; Platelet Estimate Adequate
[2018-12-30] MEDS: INSULIN NPH/REGULAR 70/30 100 UNIT/ML SUBCUT SCH ×2 (06:09→17:00)
[2018-12-30] MEDS: MEROPENEM 500 MG in SYRINGE 1 EACH IV SCH ×3 (09:21→17:00)
[2018-12-30] MEDS: MAGNESIUM OXIDE 400 MG TABLET PO SCH (11:36)
[2018-12-30] MEDS: POTASSIUM CHLORIDE 10 MEQ TABLET PO SCH (11:36)
[2018-12-30] MEDS: lisinopriL 5 MG TABLET PO SCH (11:36)
[2018-12-30] MEDS: ASPIRIN EC 81 MG TABLET PO SCH (11:36)
[2018-12-30] MEDS: FUROSEMIDE 20 MG TABLET PO SCH (11:36)
[2018-12-30] MEDS: PANTOPRAZOLE 40 MG TABLET PO SCH (11:37)
[2018-12-30] MEDS: DOCUSATE SODIUM 100 MG CAPSULE PO SCH ×2 (11:37→21:31)
[2018-12-30] MEDS: carvediloL 12.5 MG TABLET PO SCH ×2 (11:37→21:32)
[2018-12-30] MEDS: SERTRALINE 50 MG TABLET PO SCH (11:37)
[2018-12-30] MEDS: CALCIUM (CARBONATE)/VITAMIN D 600 MG-400 UNIT TABLET PO SCH ×3 (11:37→21:48)
[2018-12-30] MEDS: PRIMIDONE 50 MG TABLET PO SCH ×3 (11:37→21:32)
[2018-12-30] MEDS: CHOLECALCIFEROL 1,000 UNIT TABLET PO SCH (11:37)
[2018-12-30] MEDS: FERROUS SULFATE 325 MG TABLET PO SCH ×3 (11:37→21:32)
[2018-12-30] MEDS: CARBIDOPA/LEVODOPA 25-100 MG TABLET PO SCH ×3 (11:38→21:32)
[2018-12-30] MEDS: QUEtiapine 100 MG TABLET PO SCH (21:31)
[2018-12-30] MEDS: ATORVASTATIN 10 MG TABLET PO SCH (21:31)
[2018-12-31] MEDS: MEROPENEM 500 MG in SYRINGE 1 EACH IV SCH ×3 (02:44→17:10)
[2018-12-31] MEDS: FERROUS SULFATE 325 MG TABLET PO SCH ×4 (02:48→20:28)
[2018-12-31] MEDS: DOCUSATE SODIUM 100 MG CAPSULE PO SCH ×3 (02:48→20:28)
[2018-12-31] MEDS: SODIUM CHLORIDE 0.9% 1,000 ML IV SCH ×2 (06:38→18:39)
[2018-12-31] MEDS: INSULIN NPH/REGULAR 70/30 100 UNIT/ML SUBCUT SCH ×2 (08:05→17:09)
[2018-12-31] MEDS: POTASSIUM CHLORIDE 10 MEQ TABLET PO SCH (08:43)
[2018-12-31] MEDS: PRIMIDONE 50 MG TABLET PO SCH ×3 (08:43→20:28)
[2018-12-31] MEDS: ASPIRIN EC 81 MG TABLET PO SCH (08:44)
[2018-12-31] MEDS: FUROSEMIDE 20 MG TABLET PO SCH (08:44)
[2018-12-31] MEDS: lisinopriL 5 MG TABLET PO SCH (08:44)
[2018-12-31] MEDS: carvediloL 12.5 MG TABLET PO SCH ×2 (08:44→20:27)
[2018-12-31] MEDS: MAGNESIUM OXIDE 400 MG TABLET PO SCH (08:44)
[2018-12-31] MEDS: SERTRALINE 50 MG TABLET PO SCH (08:44)
[2018-12-31] MEDS: CHOLECALCIFEROL 1,000 UNIT TABLET PO SCH (08:44)
[2018-12-31] MEDS: CALCIUM (CARBONATE)/VITAMIN D 600 MG-400 UNIT TABLET PO SCH ×2 (08:44→20:28)
[2018-12-31] MEDS: CARBIDOPA/LEVODOPA 25-100 MG TABLET PO SCH ×3 (08:44→20:28)
[2018-12-31] MEDS: PANTOPRAZOLE 40 MG TABLET PO SCH (08:45)
[2018-12-31] MEDS: QUEtiapine 100 MG TABLET PO SCH (20:28)
[2018-12-31] MEDS: ATORVASTATIN 10 MG TABLET PO SCH (20:28)
[2019-01-01] MEDS: SODIUM CHLORIDE 0.9% 1,000 ML IV SCH ×2 (01:18→08:31)
[2019-01-01] MEDS: MEROPENEM 500 MG in SYRINGE 1 EACH IV SCH ×3 (01:18→16:19)
[2019-01-01] MEDS: INSULIN NPH/REGULAR 70/30 100 UNIT/ML SUBCUT SCH ×2 (05:59→16:19)
[2019-01-01] MEDS: PRIMIDONE 50 MG TABLET PO SCH ×3 (08:30→23:32)
[2019-01-01] MEDS: SERTRALINE 50 MG TABLET PO SCH (08:30)
[2019-01-01] MEDS: PANTOPRAZOLE 40 MG TABLET PO SCH (08:30)
[2019-01-01] MEDS: CALCIUM (CARBONATE)/VITAMIN D 600 MG-400 UNIT TABLET PO SCH ×2 (08:30→23:32)
[2019-01-01] MEDS: POTASSIUM CHLORIDE 10 MEQ TABLET PO SCH (08:30)
[2019-01-01] MEDS: lisinopriL 5 MG TABLET PO SCH (08:30)
[2019-01-01] MEDS: FUROSEMIDE 20 MG TABLET PO SCH (08:30)
[2019-01-01] MEDS: MAGNESIUM OXIDE 400 MG TABLET PO SCH (08:30)
[2019-01-01] MEDS: CARBIDOPA/LEVODOPA 25-100 MG TABLET PO SCH ×3 (08:30→23:32)
[2019-01-01] MEDS: ASPIRIN EC 81 MG TABLET PO SCH (08:30)
[2019-01-01] MEDS: CHOLECALCIFEROL 1,000 UNIT TABLET PO SCH (08:31)
[2019-01-01] MEDS: carvediloL 12.5 MG TABLET PO SCH ×2 (08:31→23:32)
[2019-01-01] MEDS: FERROUS SULFATE 325 MG TABLET PO SCH ×3 (08:31→23:32)
[2019-01-01] MEDS: DOCUSATE SODIUM 100 MG CAPSULE PO SCH ×2 (08:31→23:32)
[2019-01-01] MEDS: ATORVASTATIN 10 MG TABLET PO SCH (23:32)
[2019-01-01] MEDS: QUEtiapine 100 MG TABLET PO SCH (23:32)
[2019-01-02] MEDS: MEROPENEM 500 MG in SYRINGE 1 EACH IV SCH ×3 (00:43→17:19)
[2019-01-02] MEDS: SODIUM CHLORIDE 0.9% 1,000 ML IV SCH ×2 (02:05→10:39)
[2019-01-02] MEDS: INSULIN NPH/REGULAR 70/30 100 UNIT/ML SUBCUT SCH ×2 (07:30→09:05)
[2019-01-02 08:55] LABS: Basophils % 0.9 % (0.0-0.8); Eosinophils # 0.3 10*3/uL (0.0-0.87); Eosinophils % 7.2 % (0.00-10.9); Hematocrit 30.6 VOL% (35.7-47.0); Hemoglobin 9.5 GM/DL (12.0-16.0); Immature Granulocytes % 0.3 %; Immature Granulocytes Absolute 0.01 #; Lymphocytes # 0.9 10*3/uL (1.4-4.0); Lymphocytes % 26.6 % (21.3-54.2); Mean Corpuscular Volume 89.7 FL (87-102); Mean Platelet Volume 10.8 FL (9.6-12.0); Monocytes % 8.7 % (1.7-12.7); Neutrophils % 56.3 % (38.7-73.9); Platelet Count 170 T/CUMM (130-400); Red Blood Count 3.41 MC/CUMM (3.8-5.5); Red Cell Distribution Width 12.4 % (9.3-17.3); White Blood Count 3.5 T/CUMM (4-12)
[2019-01-02] MEDS: POTASSIUM CHLORIDE 10 MEQ TABLET PO SCH (09:04)
[2019-01-02] MEDS: lisinopriL 5 MG TABLET PO SCH (09:04)
[2019-01-02] MEDS: ASPIRIN EC 81 MG TABLET PO SCH (09:04)
[2019-01-02] MEDS: FUROSEMIDE 20 MG TABLET PO SCH (09:04)
[2019-01-02] MEDS: MAGNESIUM OXIDE 400 MG TABLET PO SCH (09:04)
[2019-01-02] MEDS: CALCIUM (CARBONATE)/VITAMIN D 600 MG-400 UNIT TABLET PO SCH ×2 (09:05→21:33)
[2019-01-02] MEDS: CHOLECALCIFEROL 1,000 UNIT TABLET PO SCH (09:05)
[2019-01-02] MEDS: DOCUSATE SODIUM 100 MG CAPSULE PO SCH ×2 (09:05→21:34)
[2019-01-02] MEDS: SERTRALINE 50 MG TABLET PO SCH (09:05)
[2019-01-02] MEDS: carvediloL 12.5 MG TABLET PO SCH ×2 (09:05→21:33)
[2019-01-02] MEDS: PANTOPRAZOLE 40 MG TABLET PO SCH (09:06)
[2019-01-02] MEDS: CARBIDOPA/LEVODOPA 25-100 MG TABLET PO SCH ×3 (09:06→21:33)
[2019-01-02] MEDS: PRIMIDONE 50 MG TABLET PO SCH ×3 (09:06→21:34)
[2019-01-02] MEDS: FERROUS SULFATE 325 MG TABLET PO SCH ×3 (09:06→21:33)
[2019-01-02 09:15] LABS: Calcium 8.9 MG/DL (8.5-10.1); Osmolality,Calculated 281.3 MOS/KG (273-304)
[2019-01-02] MEDS: QUEtiapine 100 MG TABLET PO SCH (21:33)
[2019-01-02] MEDS: ATORVASTATIN 10 MG TABLET PO SCH (21:34)
[2019-01-03] MEDS: SODIUM CHLORIDE 0.9% 1,000 ML IV SCH (01:55)
[2019-01-03] MEDS: MEROPENEM 500 MG in SYRINGE 1 EACH IV SCH ×2 (01:55→08:33)
[2019-01-03 09:06] VITALS: BP 104/68
[2019-01-03] MEDS: MAGNESIUM OXIDE 400 MG TABLET PO SCH (09:19)
[2019-01-03] MEDS: FUROSEMIDE 20 MG TABLET PO SCH (09:19)
[2019-01-03] MEDS: POTASSIUM CHLORIDE 10 MEQ TABLET PO SCH (09:19)
[2019-01-03] MEDS: INSULIN NPH/REGULAR 70/30 100 UNIT/ML SUBCUT SCH (09:19)
[2019-01-03] MEDS: ASPIRIN EC 81 MG TABLET PO SCH (09:19)
[2019-01-03] MEDS: CALCIUM (CARBONATE)/VITAMIN D 600 MG-400 UNIT TABLET PO SCH (09:20)
[2019-01-03] MEDS: FERROUS SULFATE 325 MG TABLET PO SCH (09:20)
[2019-01-03] MEDS: SERTRALINE 50 MG TABLET PO SCH (09:20)
[2019-01-03] MEDS: DOCUSATE SODIUM 100 MG CAPSULE PO SCH (09:20)
[2019-01-03] MEDS: lisinopriL 5 MG TABLET PO SCH (09:20)
[2019-01-03] MEDS: carvediloL 12.5 MG TABLET PO SCH (09:20)
[2019-01-03] MEDS: PRIMIDONE 50 MG TABLET PO SCH (09:20)
[2019-01-03] MEDS: CHOLECALCIFEROL 1,000 UNIT TABLET PO SCH (09:20)
[2019-01-03] MEDS: CARBIDOPA/LEVODOPA 25-100 MG TABLET PO SCH (09:21)
[2019-01-03] MEDS: PANTOPRAZOLE 40 MG TABLET PO SCH (09:21)
== END 2019-01-03 11:25 | DRG 690 ==
LOC: EDUNIT# → EDBD → N.EDINP 12:45 → N.ED 12:45 → N.EDINP 15:35 → N.5E 15:41
PROVIDERS: ADMIT Internal Medicine; ATTEND Internal Medicine

== ENCOUNTER 2020-09-02 10:29 | Inpatient (IN) ==
[2020-09-02] MEDS ORDERED: SODIUM CHLORIDE 0.9% 1,000 ML IV STA (11:02)
[2020-09-02] MEDS ORDERED: PIPERACILLIN/TAZOBACTAM 3,375 MG in SODIUM CHLORIDE 0.9% 100 ML IV STA (11:09)
[2020-09-02 11:54] LABS: Basophils % 0.3 % (0.0-0.8); Eosinophils % 0.1 % (0.00-10.9); Hematocrit 35.1 VOL% (35.7-47.0); Hemoglobin 10.4 GM/DL (12.0-16.0); Immature Granulocytes % 0.5 %; Immature Granulocytes Absolute 0.05 #; Lymphocytes # 0.8 10*3/uL (1.4-4.0); Lymphocytes % 7.9 % (21.3-54.2); Mean Corpuscular HGB Conc 29.6 GM/DL (32-36); Mean Corpuscular Volume 85.2 FL (87-102); Mean Platelet Volume 10.8 FL (9.6-12.0); Neutrophils % 82.2 % (38.7-73.9); Platelet Count 225 T/CUMM (130-400); Red Blood Count 4.12 MC/CUMM (3.8-5.5); Red Cell Distribution Width 14.4 % (9.3-17.3); White Blood Count 10.7 T/CUMM (4-12)
[2020-09-02 12:05] LABS: Bacteria,Urine Moderate /HPF (Few); Bilirubin,Urine Negative (Negative); Blood, Urine Negative (Negative); Glucose,Urine (UA) Negative (Negative); Ketones,Urine 5 mg/dL (Negative); Mucus,Urine Occasional /LPF (Occasional); Nitrite,Urine Negative (Negative); Protein,Urine >=500 MG/DL; RBC,Urine 8 /HPF (0-4); Triple Phosphate Crystal,Urine Few /HPF (Few); Urine Appearance CLOUDY (Clear); Urine Color Amber (Yellow); Urine Specific Gravity 1.019 (1.001-1.035)
[2020-09-02 12:14] LABS: Barbiturates Screen,Urine Negative (Negative); Benzodiazepines Screen,Urine Negative (Negative); Cannabinoid Screen,Urine Negative (Negative); Opiate Screen,Urine Negative (Negative); Phencyclidine Screen,Urine Negative (Negative)
[2020-09-02 12:22] LABS: Albumin 2.1 G/DL (3.4-5.0); Bilirubin,Total 1.2 MG/DL (0.2-1.0); Calcium 9.4 MG/DL (8.5-10.1); Osmolality,Calculated 294.7 MOS/KG (273-304); Potassium 3.1 MMOL/L (3.5-5.1); Total Protein 6.3 G/DL (6.4-8.2)
[2020-09-02] MEDS ORDERED: ONDANSETRON 4 MG/2 ML VIAL IV PRN (13:55)
[2020-09-02] MEDS ORDERED: DEXTROSE 50% 25 GM/50 ML VIAL IV PRN (13:55)
[2020-09-02] MEDS ORDERED: GLUCAGON 1 MG VIAL IM PRN (13:55)
[2020-09-02] MEDS ORDERED: SODIUM CHLORIDE 0.9% 1,000 ML IV ONE (13:59)
[2020-09-02] MEDS ORDERED: DILTIAZEM 50 MG/10 ML VIAL IV ONE (14:00)
[2020-09-02] MEDS ORDERED: MAGNESIUM SULF RIDER 2 GM/50 ML PREMIX IV PRN (14:00)
[2020-09-02] MEDS ORDERED: MAGNESIUM SULF RIDER 4 GM/100 ML PREMIX IV PRN (14:00)
[2020-09-02] MEDS: CLOTRIMAZOLE 1% CREAM 15 GM TUBE TOP SCH (18:10)
[2020-09-02] MEDS: POTASSIUM CHLORIDE RIDER 10 MEQ/100 ML PREMIX IV PRN ×2 (18:18→22:04)
[2020-09-02] MEDS: PIPERACILLIN/TAZOBACTAM 3,375 MG in SODIUM CHLORIDE 0.9% 100 ML IV SCH (18:18)
[2020-09-02] MEDS: INSULIN LISPRO 100 UNIT/ML SUBCUT SCH ×2 (18:50→21:49)
[2020-09-02] MEDS ORDERED: NON-FORMULARY MEDICATION (Amino Acids-Protein Hydrolys [Pro-Stat Sugar Free] 15-100 gram-k PO SCH (20:00)
[2020-09-02] MEDS: ACETAMINOPHEN 325 MG TABLET PO PRN (22:58)
[2020-09-03] MEDS: POTASSIUM CHLORIDE RIDER 10 MEQ/100 ML PREMIX IV PRN ×5 (00:18→09:41)
[2020-09-03] MEDS: PIPERACILLIN/TAZOBACTAM 3,375 MG in SODIUM CHLORIDE 0.9% 100 ML IV SCH ×3 (03:15→18:22)
[2020-09-03 05:50] LABS: Basophils % 0.4 % (0.0-0.8); Eosinophils # 0.1 10*3/uL (0.0-0.87); Eosinophils % 1.5 % (0.00-10.9); Hematocrit 29.7 VOL% (35.7-47.0); Hemoglobin 9.1 GM/DL (12.0-16.0); Immature Granulocytes % 0.7 %; Immature Granulocytes Absolute 0.05 #; Lymphocytes # 0.6 10*3/uL (1.4-4.0); Lymphocytes % 7.9 % (21.3-54.2); Mean Corpuscular HGB Conc 30.6 GM/DL (32-36); Mean Corpuscular Volume 83.9 FL (87-102); Mean Platelet Volume 11.6 FL (9.6-12.0); Monocytes % 8.1 % (1.7-12.7); Neutrophils % 81.4 % (38.7-73.9); Platelet Count 182 T/CUMM (130-400); Red Blood Count 3.54 MC/CUMM (3.8-5.5); Red Cell Distribution Width 14.4 % (9.3-17.3); White Blood Count 7.3 T/CUMM (4-12)
[2020-09-03] MEDS: DILTIAZEM INJ 100 MG in SODIUM CHLORIDE 0.9% 100 ML IV SCH ×2 (05:58→16:11)
[2020-09-03 06:11] LABS: Calcium 9.3 MG/DL (8.5-10.1); Osmolality,Calculated 293.6 MOS/KG (273-304); Potassium 3.5 MMOL/L (3.5-5.1)
[2020-09-03] MEDS: CLOTRIMAZOLE 1% CREAM 15 GM TUBE TOP SCH ×2 (08:41→18:22)
[2020-09-03] MEDS: SILVER SULFADIAZINE 1% CREAM 25 GM TUBE TOP SCH (08:41)
[2020-09-03] MEDS: INSULIN NPH/REGULAR 70/30 100 UNIT/ML SUBCUT SCH (08:41)
[2020-09-03] MEDS: WHITE PETROLATUM 30 GM TUBE TOP SCH (08:42)
[2020-09-03] MEDS: INSULIN LISPRO 100 UNIT/ML SUBCUT SCH ×4 (08:42→21:33)
[2020-09-03] MEDS: METOPROLOL TARTRATE 25 MG TABLET PO SCH ×2 (08:49→21:01)
[2020-09-04] MEDS: PIPERACILLIN/TAZOBACTAM 3,375 MG in SODIUM CHLORIDE 0.9% 100 ML IV SCH ×3 (04:47→18:09)
[2020-09-04 06:44] LABS: Basophils % 0.4 % (0.0-0.8); Eosinophils # 0.1 10*3/uL (0.0-0.87); Eosinophils % 1.3 % (0.00-10.9); Hematocrit 30.5 VOL% (35.7-47.0); Hemoglobin 9.1 GM/DL (12.0-16.0); Immature Granulocytes % 1.4 %; Immature Granulocytes Absolute 0.12 #; Lymphocytes # 0.6 10*3/uL (1.4-4.0); Lymphocytes % 6.9 % (21.3-54.2); Mean Corpuscular HGB Conc 29.8 GM/DL (32-36); Mean Corpuscular Volume 85.7 FL (87-102); Mean Platelet Volume 11.5 FL (9.6-12.0); Monocytes % 6.9 % (1.7-12.7); Neutrophils % 83.1 % (38.7-73.9); Platelet Count 198 T/CUMM (130-400); Red Blood Count 3.56 MC/CUMM (3.8-5.5); Red Cell Distribution Width 14.3 % (9.3-17.3); White Blood Count 8.4 T/CUMM (4-12)
[2020-09-04] MEDS: INSULIN NPH/REGULAR 70/30 100 UNIT/ML SUBCUT SCH (06:44)
[2020-09-04 07:08] LABS: Calcium 9.4 MG/DL (8.5-10.1); Osmolality,Calculated 297.6 MOS/KG (273-304); Potassium 3.2 MMOL/L (3.5-5.1)
[2020-09-04] MEDS: POTASSIUM CHLORIDE RIDER 10 MEQ/100 ML PREMIX IV PRN ×2 (07:37→09:23)
[2020-09-04] MEDS: CLOTRIMAZOLE 1% CREAM 15 GM TUBE TOP SCH ×2 (08:31→18:08)
[2020-09-04] MEDS: WHITE PETROLATUM 30 GM TUBE TOP SCH (08:31)
[2020-09-04] MEDS: SILVER SULFADIAZINE 1% CREAM 25 GM TUBE TOP SCH (08:32)
[2020-09-04] MEDS: METOPROLOL TARTRATE 25 MG TABLET PO SCH ×2 (08:48→23:35)
[2020-09-04] MEDS: MULTIVITAMIN (CENTRUM) TABLET PO SCH (08:48)
[2020-09-04] MEDS: INSULIN LISPRO 100 UNIT/ML SUBCUT SCH ×4 (08:49→22:04)
[2020-09-04] MEDS: DILTIAZEM INJ 100 MG in SODIUM CHLORIDE 0.9% 100 ML IV SCH (10:00)
[2020-09-04] MEDS: ACETAMINOPHEN 325 MG TABLET PO PRN ×2 (15:21→23:35)
[2020-09-05] MEDS: PIPERACILLIN/TAZOBACTAM 3,375 MG in SODIUM CHLORIDE 0.9% 100 ML IV SCH ×3 (03:03→18:01)
[2020-09-05 05:02] LABS: Basophils % 0.5 % (0.0-0.8); Eosinophils # 0.2 10*3/uL (0.0-0.87); Eosinophils % 3.8 % (0.00-10.9); Hematocrit 30.5 VOL% (35.7-47.0); Hemoglobin 9.4 GM/DL (12.0-16.0); Immature Granulocytes % 0.9 %; Immature Granulocytes Absolute 0.05 #; Lymphocytes # 0.7 10*3/uL (1.4-4.0); Lymphocytes % 12.3 % (21.3-54.2); Mean Corpuscular HGB Conc 30.8 GM/DL (32-36); Mean Corpuscular Volume 83.6 FL (87-102); Mean Platelet Volume 11.5 FL (9.6-12.0); Monocytes % 6.3 % (1.7-12.7); Neutrophils % 76.2 % (38.7-73.9); Platelet Count 195 T/CUMM (130-400); Red Blood Count 3.65 MC/CUMM (3.8-5.5); Red Cell Distribution Width 14.6 % (9.3-17.3); White Blood Count 5.9 T/CUMM (4-12)
[2020-09-05 05:55] LABS: Calcium 9.1 MG/DL (8.5-10.1); Osmolality,Calculated 291.8 MOS/KG (273-304); Potassium 3.4 MMOL/L (3.5-5.1)
[2020-09-05] MEDS: DILTIAZEM INJ 100 MG in SODIUM CHLORIDE 0.9% 100 ML IV SCH (06:47)
[2020-09-05] MEDS: INSULIN NPH/REGULAR 70/30 100 UNIT/ML SUBCUT SCH (07:08)
[2020-09-05] MEDS: INSULIN LISPRO 100 UNIT/ML SUBCUT SCH ×4 (08:05→21:46)
[2020-09-05] MEDS: POTASSIUM CHLORIDE 20 MEQ TABLET PO PRN ×4 (08:06→15:56)
[2020-09-05] MEDS: SILVER SULFADIAZINE 1% CREAM 25 GM TUBE TOP SCH (08:06)
[2020-09-05] MEDS: WHITE PETROLATUM 30 GM TUBE TOP SCH (08:06)
[2020-09-05] MEDS: CLOTRIMAZOLE 1% CREAM 15 GM TUBE TOP SCH ×2 (08:06→18:00)
[2020-09-05] MEDS ORDERED: METOPROLOL TARTRATE 5 MG/5 ML VIAL IV ONE (09:18)
[2020-09-05] MEDS: MULTIVITAMIN (CENTRUM) TABLET PO SCH (09:51)
[2020-09-05] MEDS: METOPROLOL TARTRATE 25 MG TABLET PO SCH (10:32)
[2020-09-05] MEDS ORDERED: DIGOXIN 0.125 MG TABLET PO SCH (13:00)
[2020-09-05] MEDS: ACETAMINOPHEN 325 MG TABLET PO PRN (15:56)
[2020-09-05] MEDS ORDERED: ALBUTEROL 0.63 MG/3 ML NEB RESP TX PRN (17:45)
[2020-09-05] MEDS ORDERED: guaiFENesin 200 MG/10 ML UDCUP PO PRN (17:46)
[2020-09-05] MEDS ORDERED: METOPROLOL TARTRATE 25 MG TABLET PO ONE (20:00)
[2020-09-05] MEDS: ALBUTEROL 0.63 MG/3 ML NEB RESP TX SCH (21:20)
[2020-09-06] MEDS: ALBUTEROL 0.63 MG/3 ML NEB RESP TX SCH ×7 (01:05→22:31)
[2020-09-06] MEDS: PIPERACILLIN/TAZOBACTAM 3,375 MG in SODIUM CHLORIDE 0.9% 100 ML IV SCH ×2 (04:45→13:04)
[2020-09-06 06:07] LABS: Basophils % 0.5 % (0.0-0.8); Eosinophils # 0.2 10*3/uL (0.0-0.87); Eosinophils % 3.6 % (0.00-10.9); Hematocrit 29.2 VOL% (35.7-47.0); Hemoglobin 9.1 GM/DL (12.0-16.0); Immature Granulocytes % 0.6 %; Immature Granulocytes Absolute 0.04 #; Lymphocytes % 15.8 % (21.3-54.2); Mean Corpuscular HGB Conc 31.2 GM/DL (32-36); Mean Platelet Volume 11.7 FL (9.6-12.0); Monocytes % 6.8 % (1.7-12.7); Neutrophils % 72.7 % (38.7-73.9); Platelet Count 198 T/CUMM (130-400); Red Blood Count 3.52 MC/CUMM (3.8-5.5); Red Cell Distribution Width 14.6 % (9.3-17.3); White Blood Count 6.2 T/CUMM (4-12)
[2020-09-06 06:26] LABS: Calcium 8.5 MG/DL (8.5-10.1); Osmolality,Calculated 279.5 MOS/KG (273-304); Potassium 3.8 MMOL/L (3.5-5.1)
[2020-09-06] MEDS: DILTIAZEM INJ 100 MG in SODIUM CHLORIDE 0.9% 100 ML IV SCH (06:42)
[2020-09-06] MEDS: INSULIN NPH/REGULAR 70/30 100 UNIT/ML SUBCUT SCH (07:08)
[2020-09-06] MEDS: INSULIN LISPRO 100 UNIT/ML SUBCUT SCH ×4 (08:28→22:34)
[2020-09-06] MEDS: ASPIRIN CHEW 81 MG TABLET PO SCH (09:16)
[2020-09-06] MEDS: SILVER SULFADIAZINE 1% CREAM 25 GM TUBE TOP SCH (09:16)
[2020-09-06] MEDS: METOPROLOL TARTRATE 25 MG TABLET PO SCH ×2 (09:16→22:21)
[2020-09-06] MEDS: POTASSIUM CHLORIDE 20 MEQ/15 ML UDCUP PO SCH (09:16)
[2020-09-06] MEDS: CLOTRIMAZOLE 1% CREAM 15 GM TUBE TOP SCH ×2 (09:16→22:28)
[2020-09-06] MEDS: MULTIVITAMIN (CENTRUM) TABLET PO SCH (09:16)
[2020-09-06] MEDS: WHITE PETROLATUM 30 GM TUBE TOP SCH (09:18)
[2020-09-06] MEDS: DIGOXIN 0.25 MG TABLET PO SCH ×2 (09:42→13:04)
[2020-09-06] MEDS: CIPROFLOXACIN 500 MG TABLET PO SCH (22:21)
[2020-09-07] MEDS: ALBUTEROL 0.63 MG/3 ML NEB RESP TX SCH ×2 (04:00→07:40)
[2020-09-07] MEDS: DILTIAZEM INJ 100 MG in SODIUM CHLORIDE 0.9% 100 ML IV SCH (06:06)
[2020-09-07] MEDS: INSULIN NPH/REGULAR 70/30 100 UNIT/ML SUBCUT SCH (06:54)
[2020-09-07] MEDS: CLOTRIMAZOLE 1% CREAM 15 GM TUBE TOP SCH (07:29)
[2020-09-07] MEDS: WHITE PETROLATUM 30 GM TUBE TOP SCH (07:29)
[2020-09-07] MEDS: ACETAMINOPHEN 325 MG TABLET PO PRN (07:29)
[2020-09-07] MEDS: SILVER SULFADIAZINE 1% CREAM 25 GM TUBE TOP SCH (07:29)
[2020-09-07] MEDS: METOPROLOL TARTRATE 25 MG TABLET PO SCH (08:06)
[2020-09-07 08:15] VITALS: BP 140/97
[2020-09-07] MEDS: INSULIN LISPRO 100 UNIT/ML SUBCUT SCH (08:24)
[2020-09-07] MEDS: MULTIVITAMIN (CENTRUM) TABLET PO SCH (08:32)
[2020-09-07] MEDS: CIPROFLOXACIN 500 MG TABLET PO SCH (08:32)
[2020-09-07] MEDS: POTASSIUM CHLORIDE 20 MEQ/15 ML UDCUP PO SCH (08:32)
[2020-09-07] MEDS: ASPIRIN CHEW 81 MG TABLET PO SCH (08:32)
[2020-09-16] MEDS ORDERED: RISPERIDONE 25 MG/2 ML IM SCH (08:00)
== END 2020-09-07 11:33 | DRG 689 ==
LOC: EDUNIT# → EDBD → N.ED 10:29 → SUATTDRO 13:56 → N.EDINP 13:56 → N.TELES 17:18
PROVIDERS: ADMIT Family Medicine; ATTEND Internal Medicine Geriatric Medicine

== ENCOUNTER 2020-10-20 14:59 | Inpatient (IN) ==
[2020-10-20 15:45] LABS: Basophils % 0.6 % (0.0-0.8); Eosinophils # 0.2 10*3/uL (0.0-0.87); Eosinophils % 2.6 % (0.00-10.9); Hematocrit 28.7 VOL% (35.7-47.0); Hemoglobin 8.5 GM/DL (12.0-16.0); Immature Granulocytes % 0.5 %; Immature Granulocytes Absolute 0.03 #; Lymphocytes # 0.9 10*3/uL (1.4-4.0); Lymphocytes % 14.4 % (21.3-54.2); Mean Corpuscular HGB Conc 29.6 GM/DL (32-36); Mean Corpuscular Volume 83.4 FL (87-102); Mean Platelet Volume 11.6 FL (9.6-12.0); Neutrophils % 74.9 % (38.7-73.9); Platelet Count 287 T/CUMM (130-400); Red Blood Count 3.44 MC/CUMM (3.8-5.5); Red Cell Distribution Width 16.2 % (9.3-17.3); White Blood Count 6.2 T/CUMM (4-12)
[2020-10-20 15:52] LABS: PT Patient Result 10.9 SECS (10.5-12.0)
[2020-10-20 15:58] LABS: Albumin 2.3 G/DL (3.4-5.0); Bilirubin,Total 0.4 MG/DL (0.20-1.00); Calcium 8.9 MG/DL (8.5-10.1); Osmolality,Calculated 280.8 MOS/KG (273-304); Potassium 4.1 MMOL/L (3.5-5.1); Total Protein 6.4 G/DL (6.4-8.2)
[2020-10-20] MEDS ORDERED: GLUCAGON 1 MG VIAL IM PRN (16:10)
[2020-10-20] MEDS ORDERED: ONDANSETRON 4 MG/2 ML VIAL IV PRN (16:10)
[2020-10-20] MEDS ORDERED: DEXTROSE 50% 25 GM/50 ML VIAL IV PRN (16:10)
[2020-10-20] MEDS: DEXTROSE 5% NACL 0.45% 1,000 ML IV SCH (18:12)
[2020-10-20] MEDS: PANTOPRAZOLE 40 MG VIAL IV SCH (21:00)
[2020-10-21 05:57] LABS: Basophils % 0.7 % (0.0-0.8); Eosinophils # 0.2 10*3/uL (0.0-0.87); Eosinophils % 3.1 % (0.00-10.9); Hematocrit 24.8 VOL% (35.7-47.0); Hemoglobin 7.6 GM/DL (12.0-16.0); Immature Granulocytes % 0.5 %; Immature Granulocytes Absolute 0.03 #; Lymphocytes # 0.9 10*3/uL (1.4-4.0); Lymphocytes % 15.5 % (21.3-54.2); Mean Corpuscular HGB Conc 30.6 GM/DL (32-36); Mean Corpuscular Volume 82.1 FL (87-102); Mean Platelet Volume 11.7 FL (9.6-12.0); Monocytes % 8.4 % (1.7-12.7); NRBC # 0.02 10*3/uL; Neutrophils % 71.8 % (38.7-73.9); Platelet Count 250 T/CUMM (130-400); Red Blood Count 3.02 MC/CUMM (3.8-5.5); Red Cell Distribution Width 16.5 % (9.3-17.3); White Blood Count 5.5 T/CUMM (4-12)
[2020-10-21 06:18] LABS: Calcium 8.7 MG/DL (8.5-10.1); Osmolality,Calculated 283.4 MOS/KG (273-304); Potassium 3.9 MMOL/L (3.5-5.1)
[2020-10-21] MEDS ORDERED: SODIUM CHLORIDE 0.9% 1,000 ML IV PRN (07:19)
[2020-10-21] MEDS: PANTOPRAZOLE 40 MG VIAL IV SCH ×2 (08:51→22:06)
[2020-10-21] MEDS: DEXTROSE 5% NACL 0.45% 1,000 ML IV SCH (08:52)
[2020-10-21 11:19] LABS: Hematocrit 25.8 VOL% (35.7-47.0); Hemoglobin 7.6 GM/DL (12.0-16.0)
[2020-10-21] MEDS ORDERED: SKIN HEALING OINT (AQUAPHOR) 50 GM TUBE TOP PRN (15:43)
[2020-10-22 06:05] LABS: Basophils % 0.6 % (0.0-0.8); Eosinophils # 0.1 10*3/uL (0.0-0.87); Eosinophils % 1.9 % (0.00-10.9); Hematocrit 26.6 VOL% (35.7-47.0); Hemoglobin 8.3 GM/DL (12.0-16.0); Immature Granulocytes % 0.4 %; Immature Granulocytes Absolute 0.02 #; Lymphocytes # 0.7 10*3/uL (1.4-4.0); Lymphocytes % 14.7 % (21.3-54.2); Mean Corpuscular HGB Conc 31.2 GM/DL (32-36); Mean Corpuscular Volume 81.3 FL (87-102); Mean Platelet Volume 11.8 FL (9.6-12.0); Monocytes % 8.2 % (1.7-12.7); Neutrophils % 74.2 % (38.7-73.9); Platelet Count 274 T/CUMM (130-400); Red Blood Count 3.27 MC/CUMM (3.8-5.5); Red Cell Distribution Width 16.2 % (9.3-17.3); White Blood Count 4.8 T/CUMM (4-12)
[2020-10-22 06:41] LABS: Calcium 8.9 MG/DL (8.5-10.1); Osmolality,Calculated 283.5 MOS/KG (273-304); Potassium 3.8 MMOL/L (3.5-5.1)
[2020-10-22] MEDS: PANTOPRAZOLE 40 MG VIAL IV SCH (08:44)
[2020-10-22 11:34] VITALS: BP 96/56
[2020-10-22] MEDS ORDERED: DIGOXIN 0.125 MG TABLET PEG SCH (13:00)
[2020-10-22] MEDS ORDERED: METOPROLOL TARTRATE 25 MG TABLET PEG SCH (20:00)
== END 2020-10-22 15:39 | DRG 377 ==
LOC: N.ED 14:59 → N.EDINP 14:59 → SUATTDRO 16:10 → N.3E 17:09
PROVIDERS: ADMIT Hospitalist; ATTEND Internal Medicine Nephrology

== ENCOUNTER 2020-11-06 07:27 | Inpatient (IN) ==
[2020-11-06] MEDS ORDERED: SODIUM CHLORIDE 0.9% 2,400 ML IV ONE (07:53)
[2020-11-06] MEDS ORDERED: PIPERACILLIN/TAZOBACTAM 3,375 MG in SODIUM CHLORIDE 0.9% 100 ML IV STA (07:54)
[2020-11-06 09:27] LABS: Alanine Aminotransferase 13 U/L (13-56); Albumin 2.7 G/DL (3.4-5.0); Alkaline Phosphatase 75 U/L (45-117); Aspartate Amino Transferase 13 U/L (0-37); Basophils # 0.1 10*3/uL (0.0-0.2); Basophils % 0.2 % (0.0-0.8); Blood Urea Nitrogen 73 MG/DL (7-18); Calcium 9.5 MG/DL (8.5-10.1); Carbon Dioxide 26 MMOL/L (21-32); Estimated Glom Filtration Rate 28 ML/MIN; Hemoglobin 10.9 GM/DL (12.0-16.0); Immature Granulocytes % 0.6 %; Immature Granulocytes Absolute 0.15 #; Lymphocytes # 0.6 10*3/uL (1.4-4.0); Lymphocytes % 2.5 % (21.3-54.2); Mean Corpuscular HGB Conc 30.3 GM/DL (32-36); Mean Corpuscular Volume 82.4 FL (87-102); Mean Platelet Volume 12.7 FL (9.6-12.0); Monocytes % 3.8 % (1.7-12.7); NRBC # 0.02 10*3/uL; Neutrophils % 92.9 % (38.7-73.9); Osmolality,Calculated 304.9 MOS/KG (273-304); Platelet Count 236 T/CUMM (130-400); Potassium 5.4 MMOL/L (3.5-5.1); Red Blood Count 4.37 MC/CUMM (3.8-5.5); Sodium 129 MMOL/L (136-145); White Blood Count 23.4 T/CUMM (4-12)
[2020-11-06 09:29] LABS: Glucose 544 MG/DL (74-106)
[2020-11-06 09:31] LABS: INR 1.1; PT Patient Result 11.7 SECS (10.5-12.0); Partial Thromboplastin Time 24.3 SECS (23.9-33.8)
[2020-11-06] MEDS ORDERED: DEXTROSE 50% 25 GM/50 ML VIAL IV PRN (09:33)
[2020-11-06] MEDS ORDERED: GLUCAGON 1 MG VIAL IM PRN (09:33)
[2020-11-06 09:43] LABS: Band Neutrophils 3 % (0-10); Lymphocytes 3 % (20-55); Segmented Neutrophils 92 % (50-85); Total Cells Counted 100
[2020-11-06 09:44] LABS: Hypochromasia 1+; Microcytosis 1+; Ovalocytes Slight; Polychromasia Slight
[2020-11-06 09:45] LABS: Platelet Estimate Normal; Tear Drop Cells Slight
[2020-11-06] MEDS ORDERED: INSULIN LISPRO 100 UNIT/ML SUBCUT STA (09:46)
[2020-11-06] MEDS ORDERED: ACETAMINOPHEN 325 MG TABLET PER TUBE PRN (10:29)
[2020-11-06] MEDS ORDERED: ONDANSETRON 4 MG/2 ML VIAL IV PRN (10:29)
[2020-11-06] MEDS ORDERED: BISACODYL 5 MG TABLET PER TUBE PRN (10:29)
[2020-11-06] MEDS ORDERED: ALBUTEROL 2.5 MG/3 ML NEB RESP TX PRN (10:29)
[2020-11-06] MEDS: ENOXAPARIN 30 MG/0.3 ML SYRINGE SUBCUT SCH (11:17)
[2020-11-06] MEDS: INSULIN GLARGINE 100 UNIT/ML SUBCUT SCH (11:19)
[2020-11-06 12:07] LABS: Glucose,Urine (UA) >=1000 mg/dL (Negative); Ketones,Urine Negative (Negative); Nitrite,Urine Negative (Negative); Protein,Urine >=500 MG/DL; Urine Appearance Slightly Cloudy (Clear); Urine Color Yellow (Yellow)
[2020-11-06 12:08] LABS: Bilirubin,Urine Negative (Negative); Blood, Urine Negative (Negative); RBC,Urine Occasional /HPF (0-4); Squamous Epithelial Cell,Urine Rare /HPF (0-10); Triple Phosphate Crystal,Urine Few /HPF (Few); Urine Urobilinogen 0.2 EU/DL (0.2-1.0)
[2020-11-06 12:09] LABS: Bacteria,Urine Many /HPF (Few)
[2020-11-06] MEDS: SODIUM CHLORIDE 0.9% 1,000 ML IV SCH (14:37)
[2020-11-06] MEDS: MEROPENEM 500 MG in SODIUM CHLORIDE 0.9% 100 ML IV SCH ×2 (14:37→21:20)
[2020-11-06 15:01] LABS: Calcium 8.7 MG/DL (8.5-10.1); Osmolality,Calculated 304.8 MOS/KG (273-304); Potassium 4.4 MMOL/L (3.5-5.1)
[2020-11-06] MEDS: INSULIN LISPRO 100 UNIT/ML SUBCUT SCH ×2 (15:58→18:30)
[2020-11-06] MEDS: VANCOMYCIN INJ 1,250 MG in SODIUM CHLORIDE 0.9% 250 ML IV SCH (17:23)
[2020-11-06] MEDS ORDERED: NON-FORMULARY MEDICATION (Amino Acids-Protein Hydrolys [Pro-Stat Sugar Free] 15-100 gram-k PEG SCH (20:00)
[2020-11-06] MEDS: FERROUS SULFATE 300 MG/5 ML UDCUP PEG SCH (21:25)
[2020-11-06] MEDS: METOPROLOL TARTRATE 25 MG TABLET PEG SCH (21:25)
[2020-11-07] MEDS: SODIUM CHLORIDE 0.9% 1,000 ML IV SCH ×4 (00:46→20:28)
[2020-11-07] MEDS: INSULIN LISPRO 100 UNIT/ML SUBCUT SCH ×7 (00:49→21:43)
[2020-11-07] MEDS: MEROPENEM 500 MG in SODIUM CHLORIDE 0.9% 100 ML IV SCH ×3 (03:54→20:30)
[2020-11-07] MEDS: INSULIN GLARGINE 100 UNIT/ML SUBCUT SCH (06:27)
[2020-11-07 06:55] LABS: Basophils % 0.3 % (0.0-0.8); Eosinophils # 0.2 10*3/uL (0.0-0.87); Eosinophils % 1.4 % (0.00-10.9); Hematocrit 27.9 VOL% (35.7-47.0); Immature Granulocytes % 0.3 %; Immature Granulocytes Absolute 0.04 #; Lymphocytes # 0.9 10*3/uL (1.4-4.0); Lymphocytes % 7.4 % (21.3-54.2); Mean Corpuscular HGB Conc 29.4 GM/DL (32-36); Mean Corpuscular Volume 84.8 FL (87-102); Mean Platelet Volume 12.3 FL (9.6-12.0); Monocytes % 4.4 % (1.7-12.7); Neutrophils % 86.2 % (38.7-73.9); Platelet Count 217 T/CUMM (130-400); Red Cell Distribution Width 17.9 % (9.3-17.3)
[2020-11-07 06:57] LABS: Red Blood Count 3.29 MC/CUMM (3.8-5.5); White Blood Count 12.2 T/CUMM (4-12)
[2020-11-07 06:58] LABS: Hemoglobin 8.2 GM/DL (12.0-16.0)
[2020-11-07 07:02] LABS: Anisocytosis 1+; Hypochromasia 1+; Microcytosis 1+; Polychromasia Slight
[2020-11-07 07:03] LABS: Ovalocytes Slight; Platelet Estimate Normal
[2020-11-07 07:22] LABS: Bilirubin,Total 0.6 MG/DL (0.20-1.00); Calcium 8.9 MG/DL (8.5-10.1); Osmolality,Calculated 293.3 MOS/KG (273-304); Potassium 4.1 MMOL/L (3.5-5.1); Total Protein 5.5 G/DL (6.4-8.2)
[2020-11-07] MEDS: METOPROLOL TARTRATE 25 MG TABLET PEG SCH ×2 (09:27→20:29)
[2020-11-07] MEDS: ENOXAPARIN 30 MG/0.3 ML SYRINGE SUBCUT SCH (09:47)
[2020-11-07] MEDS: FERROUS SULFATE 300 MG/5 ML UDCUP PEG SCH ×2 (09:47→20:29)
[2020-11-07] MEDS: VANCOMYCIN INJ 1,250 MG in SODIUM CHLORIDE 0.9% 250 ML IV SCH (15:14)
[2020-11-08] MEDS: INSULIN LISPRO 100 UNIT/ML SUBCUT SCH ×6 (02:30→22:37)
[2020-11-08] MEDS: SODIUM CHLORIDE 0.9% 1,000 ML IV SCH ×3 (04:38→23:49)
[2020-11-08] MEDS: MEROPENEM 500 MG in SODIUM CHLORIDE 0.9% 100 ML IV SCH ×3 (04:39→21:02)
[2020-11-08] MEDS: INSULIN GLARGINE 100 UNIT/ML SUBCUT SCH (06:44)
[2020-11-08 06:45] LABS: Basophils # 0.1 10*3/uL (0.0-0.2); Basophils % 0.7 % (0.0-0.8); Eosinophils # 0.2 10*3/uL (0.0-0.87); Eosinophils % 2.8 % (0.00-10.9); Hemoglobin 7.6 GM/DL (12.0-16.0); Immature Granulocytes % 0.4 %; Immature Granulocytes Absolute 0.03 #; Lymphocytes # 0.8 10*3/uL (1.4-4.0); Lymphocytes % 10.7 % (21.3-54.2); Mean Corpuscular HGB Conc 28.1 GM/DL (32-36); Mean Corpuscular Volume 86.8 FL (87-102); Mean Platelet Volume 12.3 FL (9.6-12.0); Monocytes % 7.6 % (1.7-12.7); Neutrophils % 77.8 % (38.7-73.9); Platelet Count 205 T/CUMM (130-400); Red Blood Count 3.11 MC/CUMM (3.8-5.5); Red Cell Distribution Width 17.6 % (9.3-17.3); White Blood Count 7.1 T/CUMM (4-12)
[2020-11-08 06:56] LABS: Hypochromasia 1+
[2020-11-08 06:57] LABS: Microcytosis 1+; Platelet Estimate Normal
[2020-11-08 08:28] LABS: Calcium 8.4 MG/DL (8.5-10.1); Osmolality,Calculated 303.4 MOS/KG (273-304); Potassium 3.9 MMOL/L (3.5-5.1)
[2020-11-08] MEDS: FERROUS SULFATE 300 MG/5 ML UDCUP PEG SCH ×2 (08:32→21:03)
[2020-11-08] MEDS: ENOXAPARIN 30 MG/0.3 ML SYRINGE SUBCUT SCH (08:32)
[2020-11-08] MEDS: METOPROLOL TARTRATE 25 MG TABLET PEG SCH ×2 (08:32→21:03)
[2020-11-08] MEDS: DIGOXIN 0.125 MG TABLET PO SCH (15:31)
[2020-11-08] MEDS: VANCOMYCIN INJ 1,250 MG in SODIUM CHLORIDE 0.9% 250 ML IV SCH (15:31)
[2020-11-09] MEDS: INSULIN LISPRO 100 UNIT/ML SUBCUT SCH ×6 (03:07→22:25)
[2020-11-09 06:31] LABS: Basophils % 0.3 % (0.0-0.8); Eosinophils # 0.1 10*3/uL (0.0-0.87); Eosinophils % 0.7 % (0.00-10.9); Hematocrit 28.3 VOL% (35.7-47.0); Immature Granulocytes Absolute 0.07 #; Lymphocytes # 0.8 10*3/uL (1.4-4.0); Lymphocytes % 11.2 % (21.3-54.2); Mean Corpuscular HGB Conc 28.3 GM/DL (32-36); Mean Corpuscular Volume 85.5 FL (87-102); Monocytes % 9.1 % (1.7-12.7); Neutrophils % 77.7 % (38.7-73.9); Platelet Count 222 T/CUMM (130-400); Red Blood Count 3.31 MC/CUMM (3.8-5.5); Red Cell Distribution Width 17.2 % (9.3-17.3); White Blood Count 6.7 T/CUMM (4-12)
[2020-11-09] MEDS: MEROPENEM 500 MG in SODIUM CHLORIDE 0.9% 100 ML IV SCH ×3 (06:35→22:24)
[2020-11-09] MEDS: INSULIN GLARGINE 100 UNIT/ML SUBCUT SCH (06:36)
[2020-11-09 06:38] LABS: Calcium 8.7 MG/DL (8.5-10.1); Osmolality,Calculated 307.1 MOS/KG (273-304); Potassium 4.4 MMOL/L (3.5-5.1)
[2020-11-09 06:54] LABS: Platelet Estimate Normal
[2020-11-09 06:55] LABS: Anisocytosis 2+; Macrocytosis Slight; Tear Drop Cells Few
[2020-11-09] MEDS: METOPROLOL TARTRATE 25 MG TABLET PEG SCH ×2 (10:20→22:23)
[2020-11-09] MEDS: FERROUS SULFATE 300 MG/5 ML UDCUP PEG SCH ×2 (10:20→22:23)
[2020-11-09] MEDS: ENOXAPARIN 30 MG/0.3 ML SYRINGE SUBCUT SCH (10:20)
[2020-11-09] MEDS: SODIUM CHLORIDE 0.9% 1,000 ML IV SCH ×3 (13:28→19:37)
[2020-11-09] MEDS: DIGOXIN 0.125 MG TABLET PO SCH (13:30)
[2020-11-09] MEDS: VANCOMYCIN INJ 1,250 MG in SODIUM CHLORIDE 0.9% 250 ML IV SCH (17:39)
[2020-11-09] MEDS: ACETAMINOPHEN 325 MG/10.15 ML UDCUP PEG PRN (22:23)
[2020-11-10] MEDS: INSULIN LISPRO 100 UNIT/ML SUBCUT SCH ×6 (02:40→22:47)
[2020-11-10] MEDS: SODIUM CHLORIDE 0.9% 1,000 ML IV SCH ×3 (02:41→22:45)
[2020-11-10] MEDS: MEROPENEM 500 MG in SODIUM CHLORIDE 0.9% 100 ML IV SCH ×3 (05:57→22:45)
[2020-11-10] MEDS: INSULIN GLARGINE 100 UNIT/ML SUBCUT SCH (05:57)
[2020-11-10] MEDS: FERROUS SULFATE 300 MG/5 ML UDCUP PEG SCH ×2 (10:17→22:48)
[2020-11-10] MEDS: METOPROLOL TARTRATE 25 MG TABLET PEG SCH ×2 (10:17→22:48)
[2020-11-10] MEDS: ENOXAPARIN 30 MG/0.3 ML SYRINGE SUBCUT SCH (10:30)
[2020-11-10 13:15] LABS: HIV Antigen/Antibody Result Nonreactive (Nonreactive); Hepatitis B Surface Ag Quant < 0.10 Index; Hepatitis B Surface Ag Result Non-Reactive (NonReactive); Hepatitis C Virus Ab Quant 0.09 Index; Hepatitis C Virus Ab Result Non-Reactive (NonReactive)
[2020-11-10] MEDS: DIGOXIN 0.125 MG TABLET PO SCH (14:22)
[2020-11-10] MEDS: VANCOMYCIN INJ 1,250 MG in SODIUM CHLORIDE 0.9% 250 ML IV SCH (16:24)
[2020-11-10] MEDS: ACETAMINOPHEN 325 MG/10.15 ML UDCUP PEG PRN (22:48)
[2020-11-11] MEDS: INSULIN LISPRO 100 UNIT/ML SUBCUT SCH ×4 (02:43→15:57)
[2020-11-11 05:41] LABS: Basophils % 0.5 % (0.0-0.8); Eosinophils # 0.3 10*3/uL (0.0-0.87); Eosinophils % 4.4 % (0.00-10.9); Hematocrit 26.1 VOL% (35.7-47.0); Hemoglobin 7.4 GM/DL (12.0-16.0); Immature Granulocytes % 0.8 %; Immature Granulocytes Absolute 0.05 #; Lymphocytes # 0.8 10*3/uL (1.4-4.0); Lymphocytes % 12.8 % (21.3-54.2); Mean Corpuscular HGB Conc 28.4 GM/DL (32-36); Mean Platelet Volume 11.7 FL (9.6-12.0); Monocytes % 8.1 % (1.7-12.7); NRBC # 0.03 10*3/uL; Neutrophils % 73.4 % (38.7-73.9); Platelet Count 205 T/CUMM (130-400); Red Blood Count 3.07 MC/CUMM (3.8-5.5); Red Cell Distribution Width 16.9 % (9.3-17.3); White Blood Count 6.4 T/CUMM (4-12)
[2020-11-11 06:06] LABS: Calcium 8.3 MG/DL (8.5-10.1); Osmolality,Calculated 297.4 MOS/KG (273-304); Potassium 4.2 MMOL/L (3.5-5.1)
[2020-11-11] MEDS: INSULIN GLARGINE 100 UNIT/ML SUBCUT SCH (06:17)
[2020-11-11] MEDS: MEROPENEM 500 MG in SODIUM CHLORIDE 0.9% 100 ML IV SCH (06:18)
[2020-11-11 06:43] LABS: Anisocytosis 2+; Platelet Estimate Normal
[2020-11-11 06:44] LABS: Target Cells Few; Tear Drop Cells Few
[2020-11-11] MEDS: METOPROLOL TARTRATE 25 MG TABLET PEG SCH (08:43)
[2020-11-11] MEDS: ENOXAPARIN 30 MG/0.3 ML SYRINGE SUBCUT SCH (08:43)
[2020-11-11] MEDS: FERROUS SULFATE 300 MG/5 ML UDCUP PEG SCH (08:43)
[2020-11-11] MEDS: SODIUM CHLORIDE 0.9% 1,000 ML IV SCH (08:46)
[2020-11-11 11:35] VITALS: BP 120/43
[2020-11-11] MEDS ORDERED: LEVOFLOXACIN 500 MG TABLET PEG SCH (12:00)
[2020-11-11] MEDS: DIGOXIN 0.125 MG TABLET PO SCH (15:58)
[2020-11-11] MEDS ORDERED: METHENAMINE HIPPURATE 1 GM TABLET PEG SCH (21:00)
== END 2020-11-11 16:04 | DRG 871 ==
LOC: EDBD → EDUNIT# → N.ED 07:27 → N.EDINP 10:29 → SUATTDRO 10:29 → N.EDINP 14:00 → N.5E 14:17
PROVIDERS: ADMIT Internal Medicine; ATTEND Hospitalist

== ENCOUNTER 2020-12-22 15:41 | Inpatient (IN) ==
[2020-12-22] MEDS ORDERED: SODIUM CHLORIDE 0.9% 1,000 ML IV STA (16:25)
[2020-12-22 17:31] LABS: Basophils % 0.5 % (0.0-0.8); Eosinophils # 0.3 10*3/uL (0.0-0.87); Eosinophils % 3.8 % (0.00-10.9); Hematocrit 26.6 VOL% (35.7-47.0); Hemoglobin 7.6 GM/DL (12.0-16.0); Immature Granulocytes % 0.4 %; Immature Granulocytes Absolute 0.03 #; Lymphocytes # 0.9 10*3/uL (1.4-4.0); Lymphocytes % 11.5 % (21.3-54.2); Mean Corpuscular HGB Conc 28.6 GM/DL (32-36); Mean Corpuscular Volume 79.4 FL (87-102); Monocytes % 9.5 % (1.7-12.7); Neutrophils % 74.3 % (38.7-73.9); Platelet Count 296 T/CUMM (130-400); Red Blood Count 3.35 MC/CUMM (3.8-5.5); Red Cell Distribution Width 16.4 % (9.3-17.3); White Blood Count 8.2 T/CUMM (4-12)
[2020-12-22 17:43] LABS: PT Patient Result 11.1 SECS (10.5-12.0)
[2020-12-22 17:49] LABS: Albumin 2.2 G/DL (3.4-5.0); Bilirubin,Total 0.4 MG/DL (0.20-1.00); Calcium 8.7 MG/DL (8.5-10.1); Osmolality,Calculated 279.1 MOS/KG (273-304); Potassium 4.4 MMOL/L (3.5-5.1); Total Protein 6.4 G/DL (6.4-8.2)
[2020-12-22 18:19] LABS: Bacteria,Urine Many /HPF (Few); Bilirubin,Urine Negative (Negative); Blood, Urine Negative (Negative); Glucose,Urine (UA) Negative (Negative); Ketones,Urine Negative (Negative); Nitrite,Urine Negative (Negative); Protein,Urine Negative; Squamous Epithelial Cell,Urine Occasional /HPF (0-10); Urine Appearance Slightly Hazy (Clear); Urine Color Yellow (Yellow); Urine Specific Gravity 1.012 (1.001-1.035)
[2020-12-22] MEDS ORDERED: cefTRIAXone 1,000 MG in SODIUM CHLORIDE 0.9% 100 ML IV STA (18:32)
[2020-12-22] MEDS ORDERED: DEXTROSE 50% 25 GM/50 ML VIAL IV PRN (18:41)
[2020-12-22] MEDS ORDERED: GLUCAGON 1 MG VIAL IM PRN (18:41)
[2020-12-22] MEDS ORDERED: ONDANSETRON 4 MG/2 ML VIAL IV PRN (18:41)
[2020-12-23] MEDS: SODIUM CHLORIDE 0.9% 1,000 ML IV SCH ×2 (00:24→13:29)
[2020-12-23] MEDS: PANTOPRAZOLE 40 MG VIAL IV SCH ×3 (00:24→20:48)
[2020-12-23 02:41] LABS: Calcium 8.9 MG/DL (8.5-10.1); Osmolality,Calculated 281.8 MOS/KG (273-304); Potassium 3.8 MMOL/L (3.5-5.1)
[2020-12-23] MEDS: INSULIN REGULAR 100 UNIT/ML SUBCUT SCH ×2 (16:36→20:34)
[2020-12-23] MEDS: SODIUM HYPOCHLORITE 0.25% IRRIG 473 ML BOTTLE TOP SCH (16:36)
[2020-12-23] MEDS ORDERED: cefTRIAXone 2,000 MG in SODIUM CHLORIDE 0.9% 100 ML IV SCH (19:00)
[2020-12-24] MEDS: SODIUM CHLORIDE 0.9% 1,000 ML IV SCH ×2 (01:23→16:08)
[2020-12-24] MEDS ORDERED: INSULIN DETEMIR 100 UNIT/ML SUBCUT SCH (05:00)
[2020-12-24 05:26] LABS: Basophils # 0.1 10*3/uL (0.0-0.2); Basophils % 0.8 % (0.0-0.8); Eosinophils # 0.2 10*3/uL (0.0-0.87); Eosinophils % 2.6 % (0.00-10.9); Hematocrit 24.3 VOL% (35.7-47.0); Hemoglobin 6.8 GM/DL (12.0-16.0); Immature Granulocytes % 0.4 %; Immature Granulocytes Absolute 0.03 #; Lymphocytes # 0.9 10*3/uL (1.4-4.0); Lymphocytes % 11.2 % (21.3-54.2); Mean Corpuscular Volume 81.5 FL (87-102); Mean Platelet Volume 11.8 FL (9.6-12.0); Monocytes % 9.4 % (1.7-12.7); Neutrophils % 75.6 % (38.7-73.9); Platelet Count 268 T/CUMM (130-400); Red Blood Count 2.98 MC/CUMM (3.8-5.5); Red Cell Distribution Width 16.5 % (9.3-17.3)
[2020-12-24 05:40] LABS: Calcium 8.3 MG/DL (8.5-10.1); Osmolality,Calculated 290.1 MOS/KG (273-304); Potassium 4.2 MMOL/L (3.5-5.1)
[2020-12-24] MEDS ORDERED: SODIUM CHLORIDE 0.9% 1,000 ML IV PRN (08:40)
[2020-12-24] MEDS: PANTOPRAZOLE 40 MG VIAL IV SCH ×2 (09:05→20:16)
[2020-12-24] MEDS: SODIUM HYPOCHLORITE 0.25% IRRIG 473 ML BOTTLE TOP SCH (09:06)
[2020-12-24] MEDS: INSULIN REGULAR 100 UNIT/ML SUBCUT SCH ×4 (09:06→20:41)
[2020-12-24] MEDS: INSULIN GLARGINE 100 UNIT/ML SUBCUT SCH (09:06)
[2020-12-24] MEDS: MULTIVITAMIN LIQUID (CENTRUM) 60 ML BOTTLE PER TUBE SCH (09:07)
[2020-12-24] MEDS: ACETAMINOPHEN 325 MG/10.15 ML UDCUP PO PRN ×2 (10:12→16:08)
[2020-12-24] MEDS ORDERED: diphenhydrAMINE 25 MG/10 ML UDCUP PO ONE (11:00)
[2020-12-24] MEDS ORDERED: SODIUM HYPOCHLORITE 0.25% IRRIG 473 ML BOTTLE TOP SCH (14:00)
[2020-12-24 19:51] LABS: Hematocrit 30.1 VOL% (35.7-47.0)
[2020-12-24] MEDS: ERTAPENEM 1,000 MG in SODIUM CHLORIDE 0.9% 100 ML IV SCH (20:16)
[2020-12-25] MEDS: SODIUM CHLORIDE 0.9% 1,000 ML IV SCH ×3 (03:20→18:33)
[2020-12-25 05:19] LABS: Basophils # 0.1 10*3/uL (0.0-0.2); Basophils % 0.6 % (0.0-0.8); Eosinophils # 0.3 10*3/uL (0.0-0.87); Eosinophils % 4.1 % (0.00-10.9); Hematocrit 30.1 VOL% (35.7-47.0); Immature Granulocytes % 0.3 %; Immature Granulocytes Absolute 0.02 #; Lymphocytes % 12.7 % (21.3-54.2); Mean Corpuscular HGB Conc 29.9 GM/DL (32-36); Mean Corpuscular Volume 81.6 FL (87-102); Mean Platelet Volume 10.6 FL (9.6-12.0); Monocytes % 7.7 % (1.7-12.7); Neutrophils % 74.6 % (38.7-73.9); Platelet Count 233 T/CUMM (130-400); Red Blood Count 3.69 MC/CUMM (3.8-5.5); Red Cell Distribution Width 15.9 % (9.3-17.3); White Blood Count 7.8 T/CUMM (4-12)
[2020-12-25 05:36] LABS: Calcium 8.9 MG/DL (8.5-10.1); Osmolality,Calculated 284.3 MOS/KG (273-304); Potassium 4.8 MMOL/L (3.5-5.1)
[2020-12-25 05:38] LABS: Calcium 8.8 MG/DL (8.5-10.1); Osmolality,Calculated 286.1 MOS/KG (273-304); Potassium 4.9 MMOL/L (3.5-5.1)
[2020-12-25] MEDS: INSULIN REGULAR 100 UNIT/ML SUBCUT SCH ×4 (07:36→23:14)
[2020-12-25] MEDS: PANTOPRAZOLE 40 MG VIAL IV SCH ×2 (08:29→23:22)
[2020-12-25] MEDS: INSULIN GLARGINE 100 UNIT/ML SUBCUT SCH (09:37)
[2020-12-25] MEDS: LACTATED RINGERS 1,000 ML IV SCH (12:38)
[2020-12-25] MEDS ORDERED: propofoL 200 MG/20 ML VIAL IV ONE (13:45)
[2020-12-25] MEDS ORDERED: ETOMIDATE 20 MG/10 ML VIAL IV ONE (13:45)
[2020-12-25] MEDS ORDERED: LIDOCAINE 2% 5 ML VIAL ONE (13:46)
[2020-12-25] MEDS: SODIUM HYPOCHLORITE 0.25% IRRIG 473 ML BOTTLE TOP SCH (16:04)
[2020-12-25] MEDS: MULTIVITAMIN LIQUID (CENTRUM) 60 ML BOTTLE PER TUBE SCH (16:04)
[2020-12-25] MEDS: ACETAMINOPHEN 325 MG/10.15 ML UDCUP PO PRN ×2 (18:33→23:21)
[2020-12-25] MEDS: ERTAPENEM 1,000 MG in SODIUM CHLORIDE 0.9% 100 ML IV SCH (23:26)
[2020-12-26] MEDS: ACETAMINOPHEN 325 MG/10.15 ML UDCUP PO PRN ×2 (04:16→22:10)
[2020-12-26] MEDS: SODIUM CHLORIDE 0.9% 1,000 ML IV SCH ×2 (06:32→21:42)
[2020-12-26 06:41] LABS: Basophils % 0.5 % (0.0-0.8); Eosinophils # 0.4 10*3/uL (0.0-0.87); Eosinophils % 6.4 % (0.00-10.9); Hematocrit 30.6 VOL% (35.7-47.0); Hemoglobin 9.1 GM/DL (12.0-16.0); Immature Granulocytes % 0.3 %; Immature Granulocytes Absolute 0.02 #; Lymphocytes # 0.8 10*3/uL (1.4-4.0); Lymphocytes % 13.5 % (21.3-54.2); Mean Corpuscular HGB Conc 29.7 GM/DL (32-36); Mean Corpuscular Volume 81.4 FL (87-102); Mean Platelet Volume 13.5 FL (9.6-12.0); Monocytes % 7.2 % (1.7-12.7); Neutrophils % 72.1 % (38.7-73.9); Red Blood Count 3.76 MC/CUMM (3.8-5.5); Red Cell Distribution Width 16.2 % (9.3-17.3); White Blood Count 6.2 T/CUMM (4-12)
[2020-12-26 06:45] LABS: Platelet Count 150 T/CUMM (130-400)
[2020-12-26 07:03] LABS: Calcium 8.5 MG/DL (8.5-10.1); Osmolality,Calculated 283.3 MOS/KG (273-304); Potassium 4.4 MMOL/L (3.5-5.1)
[2020-12-26 07:07] LABS: Anisocytosis 1+; Hypochromasia 1+; Microcytosis 1+
[2020-12-26 07:08] LABS: Ovalocytes Few; Polychromasia Slight; Tear Drop Cells Slight
[2020-12-26] MEDS: INSULIN REGULAR 100 UNIT/ML SUBCUT SCH ×4 (07:18→22:11)
[2020-12-26] MEDS: MULTIVITAMIN LIQUID (CENTRUM) 60 ML BOTTLE PER TUBE SCH (08:34)
[2020-12-26] MEDS: SODIUM HYPOCHLORITE 0.25% IRRIG 473 ML BOTTLE TOP SCH (08:35)
[2020-12-26] MEDS: INSULIN GLARGINE 100 UNIT/ML SUBCUT SCH (08:35)
[2020-12-26] MEDS: PANTOPRAZOLE 40 MG VIAL IV SCH ×2 (08:35→22:10)
[2020-12-26] MEDS: LACTATED RINGERS 1,000 ML IV SCH (14:05)
[2020-12-26] MEDS: ERTAPENEM 1,000 MG in SODIUM CHLORIDE 0.9% 100 ML IV SCH (22:10)
[2020-12-27] MEDS: INSULIN REGULAR 100 UNIT/ML SUBCUT SCH ×4 (07:56→22:34)
[2020-12-27] MEDS: INSULIN GLARGINE 100 UNIT/ML SUBCUT SCH (09:06)
[2020-12-27] MEDS: PANTOPRAZOLE 40 MG VIAL IV SCH ×2 (09:06→22:45)
[2020-12-27] MEDS: MULTIVITAMIN LIQUID (CENTRUM) 60 ML BOTTLE PER TUBE SCH (09:06)
[2020-12-27] MEDS: SODIUM HYPOCHLORITE 0.25% IRRIG 473 ML BOTTLE TOP SCH (09:08)
[2020-12-27] MEDS ORDERED: METOPROLOL TARTRATE 5 MG/5 ML VIAL IV ONE (13:00)
[2020-12-27] MEDS: METOPROLOL SUCCINATE XL 25 MG TABLET PO SCH (13:24)
[2020-12-27] MEDS: ERTAPENEM 1,000 MG in SODIUM CHLORIDE 0.9% 100 ML IV SCH (22:48)
[2020-12-28 05:36] LABS: Basophils % 0.4 % (0.0-0.8); Eosinophils # 0.3 10*3/uL (0.0-0.87); Eosinophils % 4.8 % (0.00-10.9); Hematocrit 29.3 VOL% (35.7-47.0); Hemoglobin 8.7 GM/DL (12.0-16.0); Immature Granulocytes % 0.4 %; Immature Granulocytes Absolute 0.03 #; Lymphocytes # 0.9 10*3/uL (1.4-4.0); Lymphocytes % 12.6 % (21.3-54.2); Mean Corpuscular HGB Conc 29.7 GM/DL (32-36); Mean Corpuscular Volume 80.1 FL (87-102); Mean Platelet Volume 10.9 FL (9.6-12.0); Monocytes % 7.5 % (1.7-12.7); Neutrophils % 74.3 % (38.7-73.9); Platelet Count 257 T/CUMM (130-400); Red Blood Count 3.66 MC/CUMM (3.8-5.5); Red Cell Distribution Width 16.4 % (9.3-17.3); White Blood Count 7.1 T/CUMM (4-12)
[2020-12-28] MEDS: SODIUM CHLORIDE 0.9% 1,000 ML IV SCH ×2 (05:37→09:40)
[2020-12-28 06:01] LABS: Calcium 8.5 MG/DL (8.5-10.1); Osmolality,Calculated 276.5 MOS/KG (273-304); Potassium 4.2 MMOL/L (3.5-5.1)
[2020-12-28] MEDS: INSULIN GLARGINE 100 UNIT/ML SUBCUT SCH (09:04)
[2020-12-28] MEDS: INSULIN REGULAR 100 UNIT/ML SUBCUT SCH ×4 (09:04→21:49)
[2020-12-28] MEDS: PANTOPRAZOLE 40 MG VIAL IV SCH ×2 (09:05→21:50)
[2020-12-28] MEDS: METOPROLOL SUCCINATE XL 25 MG TABLET PO SCH (09:05)
[2020-12-28] MEDS: SODIUM HYPOCHLORITE 0.25% IRRIG 473 ML BOTTLE TOP SCH (09:43)
[2020-12-28] MEDS: DEXT 5% NACL 0.45% KCL 20 MEQ 20 MEQ/1,000 ML BAG IV SCH (09:43)
[2020-12-28] MEDS: MULTIVITAMIN LIQUID (CENTRUM) 60 ML BOTTLE PER TUBE SCH (10:35)
[2020-12-28] MEDS: ERTAPENEM 1,000 MG in SODIUM CHLORIDE 0.9% 100 ML IV SCH (21:55)
[2020-12-29] MEDS: DEXT 5% NACL 0.45% KCL 20 MEQ 20 MEQ/1,000 ML BAG IV SCH ×2 (00:50→13:17)
[2020-12-29 05:41] LABS: Basophils % 0.5 % (0.0-0.8); Eosinophils # 0.5 10*3/uL (0.0-0.87); Eosinophils % 5.6 % (0.00-10.9); Hematocrit 31.4 VOL% (35.7-47.0); Hemoglobin 9.5 GM/DL (12.0-16.0); Immature Granulocytes % 0.5 %; Immature Granulocytes Absolute 0.04 #; Lymphocytes # 1.2 10*3/uL (1.4-4.0); Lymphocytes % 14.8 % (21.3-54.2); Mean Corpuscular HGB Conc 30.3 GM/DL (32-36); Mean Corpuscular Volume 79.7 FL (87-102); Mean Platelet Volume 10.5 FL (9.6-12.0); Neutrophils % 71.6 % (38.7-73.9); Platelet Count 270 T/CUMM (130-400); Red Blood Count 3.94 MC/CUMM (3.8-5.5); Red Cell Distribution Width 16.3 % (9.3-17.3); White Blood Count 8.4 T/CUMM (4-12)
[2020-12-29 06:06] LABS: Calcium 8.9 MG/DL (8.5-10.1); Osmolality,Calculated 274.1 MOS/KG (273-304); Potassium 4.6 MMOL/L (3.5-5.1)
[2020-12-29] MEDS: METOPROLOL SUCCINATE XL 25 MG TABLET PO SCH (09:17)
[2020-12-29] MEDS: MULTIVITAMIN LIQUID (CENTRUM) 60 ML BOTTLE PER TUBE SCH (09:17)
[2020-12-29] MEDS: PANTOPRAZOLE 40 MG VIAL IV SCH ×2 (09:17→21:33)
[2020-12-29] MEDS: INSULIN REGULAR 100 UNIT/ML SUBCUT SCH ×3 (09:18→17:40)
[2020-12-29] MEDS: INSULIN GLARGINE 100 UNIT/ML SUBCUT SCH (09:18)
[2020-12-29] MEDS: SODIUM HYPOCHLORITE 0.25% IRRIG 473 ML BOTTLE TOP SCH (10:48)
[2020-12-29] MEDS: ERTAPENEM 1,000 MG in SODIUM CHLORIDE 0.9% 100 ML IV SCH (21:34)
[2020-12-30] MEDS: INSULIN REGULAR 100 UNIT/ML SUBCUT SCH ×5 (00:32→20:23)
[2020-12-30] MEDS: DEXT 5% NACL 0.45% KCL 20 MEQ 20 MEQ/1,000 ML BAG IV SCH ×2 (04:58→20:23)
[2020-12-30 06:50] LABS: Basophils % 0.4 % (0.0-0.8); Eosinophils # 0.4 10*3/uL (0.0-0.87); Eosinophils % 5.5 % (0.00-10.9); Hematocrit 30.4 VOL% (35.7-47.0); Hemoglobin 9.2 GM/DL (12.0-16.0); Immature Granulocytes % 0.3 %; Immature Granulocytes Absolute 0.02 #; Lymphocytes # 0.8 10*3/uL (1.4-4.0); Lymphocytes % 11.2 % (21.3-54.2); Mean Corpuscular HGB Conc 30.3 GM/DL (32-36); Mean Platelet Volume 12.3 FL (9.6-12.0); Monocytes % 7.1 % (1.7-12.7); Neutrophils % 75.5 % (38.7-73.9); Platelet Count 283 T/CUMM (130-400); Red Cell Distribution Width 16.4 % (9.3-17.3); White Blood Count 7.1 T/CUMM (4-12)
[2020-12-30 07:15] LABS: Calcium 8.9 MG/DL (8.5-10.1); Osmolality,Calculated 278.7 MOS/KG (273-304); Potassium 4.5 MMOL/L (3.5-5.1)
[2020-12-30] MEDS: PANTOPRAZOLE 40 MG VIAL IV SCH ×2 (08:42→20:23)
[2020-12-30] MEDS: MULTIVITAMIN LIQUID (CENTRUM) 60 ML BOTTLE PER TUBE SCH (08:42)
[2020-12-30] MEDS: METOPROLOL SUCCINATE XL 25 MG TABLET PO SCH (08:43)
[2020-12-30] MEDS: SODIUM HYPOCHLORITE 0.25% IRRIG 473 ML BOTTLE TOP SCH (08:44)
[2020-12-30] MEDS: INSULIN GLARGINE 100 UNIT/ML SUBCUT SCH (08:44)
[2020-12-30] MEDS: ERTAPENEM 1,000 MG in SODIUM CHLORIDE 0.9% 100 ML IV SCH (20:23)
[2020-12-31 06:11] LABS: Basophils % 0.6 % (0.0-0.8); Eosinophils # 0.4 10*3/uL (0.0-0.87); Hematocrit 30.9 VOL% (35.7-47.0); Hemoglobin 9.2 GM/DL (12.0-16.0); Immature Granulocytes % 0.4 %; Immature Granulocytes Absolute 0.03 #; Lymphocytes % 14.3 % (21.3-54.2); Mean Corpuscular HGB Conc 29.8 GM/DL (32-36); Mean Corpuscular Volume 79.8 FL (87-102); Mean Platelet Volume 11.3 FL (9.6-12.0); Monocytes % 6.9 % (1.7-12.7); Neutrophils % 72.8 % (38.7-73.9); Platelet Count 277 T/CUMM (130-400); Red Blood Count 3.87 MC/CUMM (3.8-5.5); Red Cell Distribution Width 16.3 % (9.3-17.3); White Blood Count 7.3 T/CUMM (4-12)
[2020-12-31 06:19] LABS: Calcium 9.1 MG/DL (8.5-10.1); Osmolality,Calculated 280.5 MOS/KG (273-304); Potassium 4.7 MMOL/L (3.5-5.1)
[2020-12-31] MEDS: PANTOPRAZOLE 40 MG VIAL IV SCH (10:01)
[2020-12-31] MEDS: DEXT 5% NACL 0.45% KCL 20 MEQ 20 MEQ/1,000 ML BAG IV SCH (10:04)
[2020-12-31] MEDS: MULTIVITAMIN LIQUID (CENTRUM) 60 ML BOTTLE PER TUBE SCH (10:05)
[2020-12-31] MEDS: ACETAMINOPHEN 325 MG/10.15 ML UDCUP PO PRN (10:06)
[2020-12-31] MEDS: INSULIN REGULAR 100 UNIT/ML SUBCUT SCH ×3 (10:07→16:10)
[2020-12-31] MEDS: INSULIN GLARGINE 100 UNIT/ML SUBCUT SCH (10:07)
[2020-12-31] MEDS: METOPROLOL SUCCINATE XL 25 MG TABLET PO SCH (10:07)
[2020-12-31] MEDS: SODIUM HYPOCHLORITE 0.25% IRRIG 473 ML BOTTLE TOP SCH (10:07)
[2020-12-31 16:45] VITALS: BP 149/66
== END 2020-12-31 17:21 | DRG 377 ==
LOC: EDBD → EDUNIT# → N.ED 15:41 → N.EDINP 18:34 → SUATTDRO 18:34 → N.EDINP 12-23 00:27 → N.5E 12-23 00:51
PROVIDERS: ADMIT Internal Medicine; ATTEND Internal Medicine

== ENCOUNTER 2021-01-10 19:11 | Inpatient (IN) ==
[2021-01-10 20:30] LABS: Basophils # 0.1 10*3/uL (0.0-0.2); Basophils % 0.6 % (0.0-0.8); Eosinophils # 0.4 10*3/uL (0.0-0.87); Eosinophils % 3.6 % (0.00-10.9); Hemoglobin 9.4 GM/DL (12.0-16.0); Immature Granulocytes % 0.5 %; Immature Granulocytes Absolute 0.05 #; Lymphocytes # 0.9 10*3/uL (1.4-4.0); Lymphocytes % 9.4 % (21.3-54.2); Mean Corpuscular HGB Conc 29.4 GM/DL (32-36); Mean Platelet Volume 11.2 FL (9.6-12.0); Monocytes % 7.5 % (1.7-12.7); Neutrophils % 78.4 % (38.7-73.9); Platelet Count 355 T/CUMM (130-400); Red Cell Distribution Width 16.5 % (9.3-17.3); White Blood Count 9.7 T/CUMM (4-12)
[2021-01-10 20:49] LABS: Albumin 2.2 G/DL (3.4-5.0); Bilirubin,Total 0.4 MG/DL (0.20-1.00); Calcium 9.4 MG/DL (8.5-10.1); Osmolality,Calculated 281.1 MOS/KG (273-304); Potassium 4.2 MMOL/L (3.5-5.1); Total Protein 6.7 G/DL (6.4-8.2)
[2021-01-10] MEDS ORDERED: SODIUM CHLORIDE 0.9% 1,000 ML IV STA (21:21)
[2021-01-10] MEDS ORDERED: ONDANSETRON 4 MG/2 ML VIAL IV PRN (21:30)
[2021-01-10] MEDS ORDERED: hydrALAZINE 20 MG/1 ML VIAL IV PRN (21:30)
[2021-01-10] MEDS ORDERED: DEXTROSE 50% 25 GM/50 ML VIAL IV PRN (21:30)
[2021-01-10] MEDS ORDERED: NICOTINE 21 MG/24 HR PATCH TRANSDERM PRN (21:30)
[2021-01-10] MEDS ORDERED: GLUCAGON 1 MG VIAL IM PRN (21:30)
[2021-01-10] MEDS ORDERED: MORPHINE 2 MG/1 ML SYRINGE IV PRN (21:30)
[2021-01-10 21:34] LABS: Sedimentation Rate-Westergren 70 MM/HR (0-30)
[2021-01-10 21:39] LABS: Bilirubin,Urine Negative (Negative); Blood, Urine Negative (Negative); Glucose,Urine (UA) Negative (Negative); Ketones,Urine Negative (Negative); Nitrite,Urine Negative (Negative); Protein,Urine Negative; RBC,Urine 2 /HPF (0-4); Squamous Epithelial Cell,Urine Occasional /HPF (0-10); Urine Appearance CLEAR (Clear); Urine Color Yellow (Yellow); Urine Specific Gravity 1.011 (1.001-1.035)
[2021-01-10] MEDS ORDERED: cefTRIAXone 1,000 MG in SODIUM CHLORIDE 0.9% 100 ML IV SCH (23:00)
[2021-01-10] MEDS: SODIUM CHLORIDE 0.9% 1,000 ML IV SCH (23:42)
[2021-01-11] MEDS ORDERED: VANCOMYCIN INJ 1,000 MG in SODIUM CHLORIDE 0.9% 250 ML IV SCH
[2021-01-11 02:14] LABS: Basophils # 0.1 10*3/uL (0.0-0.2); Basophils % 0.5 % (0.0-0.8); Eosinophils # 0.2 10*3/uL (0.0-0.87); Eosinophils % 2.4 % (0.00-10.9); Hematocrit 31.2 VOL% (35.7-47.0); Hemoglobin 9.2 GM/DL (12.0-16.0); Immature Granulocytes % 0.5 %; Immature Granulocytes Absolute 0.05 #; Lymphocytes % 9.6 % (21.3-54.2); Mean Corpuscular HGB Conc 29.5 GM/DL (32-36); Mean Platelet Volume 10.5 FL (9.6-12.0); Monocytes % 7.5 % (1.7-12.7); Neutrophils % 79.5 % (38.7-73.9); Platelet Count 309 T/CUMM (130-400); Red Cell Distribution Width 16.4 % (9.3-17.3)
[2021-01-11 02:29] LABS: Calcium 8.9 MG/DL (8.5-10.1)
[2021-01-11] MEDS: INSULIN LISPRO 100 UNIT/ML SUBCUT SCH ×3 (04:17→12:13)
[2021-01-11] MEDS: metroNIDAZOLE INJ 500 MG/100 ML PREMIX IV SCH ×2 (06:24→09:07)
[2021-01-11] MEDS ORDERED: ENOXAPARIN 40 MG/0.4 ML SYRINGE SUBCUT SCH (09:00)
[2021-01-11] MEDS ORDERED: PANTOPRAZOLE 40 MG VIAL IV SCH (09:00)
[2021-01-11 11:59] VITALS: BP 140/47
[2021-01-11] MEDS: SODIUM CHLORIDE 0.9% 1,000 ML IV SCH (13:43)
== END 2021-01-11 16:11 | DRG 56 ==
LOC: EDUNIT# → EDBD → N.ED 19:11 → N.EDINP 22:39 → N.TELES 01-11 01:00
PROVIDERS: ADMIT Internal Medicine Geriatric Medicine; ATTEND Internal Medicine Geriatric Medicine

== ENCOUNTER 2021-01-16 09:46 | Inpatient (IN) ==
[2021-01-16] MEDS ORDERED: SODIUM CHLORIDE 0.9% 1,000 ML IV STA (10:30)
[2021-01-16 11:30] LABS: Basophils # 0.1 10*3/uL (0.0-0.2); Basophils % 0.5 % (0.0-0.8); Eosinophils # 0.6 10*3/uL (0.0-0.87); Eosinophils % 5.2 % (0.00-10.9); Hematocrit 27.5 VOL% (35.7-47.0); Hemoglobin 8.3 GM/DL (12.0-16.0); Immature Granulocytes % 0.5 %; Immature Granulocytes Absolute 0.05 #; Lymphocytes # 1.1 10*3/uL (1.4-4.0); Lymphocytes % 9.8 % (21.3-54.2); Mean Corpuscular HGB Conc 30.2 GM/DL (32-36); Mean Corpuscular Volume 76.6 FL (87-102); Mean Platelet Volume 10.7 FL (9.6-12.0); Monocytes % 7.2 % (1.7-12.7); Neutrophils % 76.8 % (38.7-73.9); Platelet Count 321 T/CUMM (130-400); Red Blood Count 3.59 MC/CUMM (3.8-5.5); Red Cell Distribution Width 16.8 % (9.3-17.3); White Blood Count 11.1 T/CUMM (4-12)
[2021-01-16 11:39] LABS: PT Patient Result 11.3 SECS (10.5-12.0); Partial Thromboplastin Time 29.3 SECS (23.9-33.8)
[2021-01-16 11:49] LABS: Bilirubin,Total 1.2 MG/DL (0.20-1.00); Calcium 9.1 MG/DL (8.5-10.1); Osmolality,Calculated 277.1 MOS/KG (273-304); Potassium 4.1 MMOL/L (3.5-5.1); Total Protein 6.5 G/DL (6.4-8.2)
[2021-01-16] MEDS ORDERED: ACETAMINOPHEN 325 MG TABLET PO PRN (12:24)
[2021-01-16] MEDS ORDERED: ONDANSETRON 4 MG/2 ML VIAL IV PRN (12:24)
[2021-01-16] MEDS ORDERED: SIMETHICONE CHEW 125 MG TABLET PO PRN (12:24)
[2021-01-16] MEDS ORDERED: GLUCAGON 1 MG VIAL IM PRN (12:24)
[2021-01-16] MEDS ORDERED: hydrALAZINE 20 MG/1 ML VIAL IV PRN (12:24)
[2021-01-16] MEDS ORDERED: DEXTROSE 50% 25 GM/50 ML VIAL IV PRN ×2 (12:24→16:50)
[2021-01-16] MEDS ORDERED: DOCUSATE SODIUM 100 MG CAPSULE PO PRN (12:24)
[2021-01-16] MEDS ORDERED: VANCOMYCIN INJ 1,250 MG in SODIUM CHLORIDE 0.9% 250 ML IV ONE (12:24)
[2021-01-16] MEDS ORDERED: ALUMINUM/MAGNES/SIMETH MAX STR 30 ML UDCUP PO PRN (12:24)
[2021-01-16] MEDS: PIPERACILLIN/TAZOBACTAM 3,375 MG in SODIUM CHLORIDE 0.9% 100 ML IV SCH ×2 (13:50→22:01)
[2021-01-16] MEDS ORDERED: ACETAMINOPHEN 325 MG TABLET PEG PRN (14:14)
[2021-01-16] MEDS ORDERED: METOPROLOL TARTRATE 50 MG TABLET PEG ONE (14:22)
[2021-01-16 14:56] LABS: Bacteria,Urine Occasional /HPF (Few); Bilirubin,Urine Negative (Negative); Blood, Urine Negative (Negative); Glucose,Urine (UA) Negative (Negative); Ketones,Urine Negative (Negative); Nitrite,Urine Negative (Negative); Protein,Urine Negative; RBC,Urine 2 /HPF (0-4); Urine Appearance CLEAR (Clear); Urine Color Yellow (Yellow); Urine Specific Gravity 1.009 (1.001-1.035)
[2021-01-16] MEDS ORDERED: ZINC OXIDE PASTE 113 GM TUBE TOP PRN (15:46)
[2021-01-16 15:53] LABS: Thyroid Stimulating Hormone 1.14 uIU/ml (0.358-3.74)
[2021-01-16] MEDS: INSULIN LISPRO 100 UNIT/ML SUBCUT SCH ×2 (16:24→22:01)
[2021-01-16] MEDS: LACTATED RINGERS 1,000 ML IV SCH (16:44)
[2021-01-16] MEDS: VANCOMYCIN INJ 1,250 MG in SODIUM CHLORIDE 0.9% 250 ML IV SCH ×3 (17:53→18:33)
[2021-01-16] MEDS: SODIUM HYPOCHLORITE 0.25% IRRIG 473 ML BOTTLE TOP SCH (18:16)
[2021-01-16] MEDS: [UNRECOGNIZED DRUG - OTHER] PEG SCH (18:39)
[2021-01-16] MEDS: NUT TX GLUC INTOL LF SOY FIBER PEG SCH (18:39)
[2021-01-16] MEDS: OMEPRAZOLE ODT 20 MG TABLET PEG SCH (21:59)
[2021-01-16] MEDS: risperiDONE 0.5 MG TABLET PEG SCH (21:59)
[2021-01-16] MEDS: METHENAMINE HIPPURATE 1 GM TABLET PEG SCH (21:59)
[2021-01-16] MEDS: NON-FORMULARY MEDICATION (Amino Acids-Protein Hydrolys [Pro-Stat Sugar Free] 15-100 gram-k PEG SCH (22:00)
[2021-01-17] MEDS: LACTATED RINGERS 1,000 ML IV SCH ×2 (01:59→16:30)
[2021-01-17] MEDS: PIPERACILLIN/TAZOBACTAM 3,375 MG in SODIUM CHLORIDE 0.9% 100 ML IV SCH ×3 (05:34→21:07)
[2021-01-17 05:43] LABS: Calcium 8.5 MG/DL (8.5-10.1); Osmolality,Calculated 283.4 MOS/KG (273-304); Potassium 3.9 MMOL/L (3.5-5.1)
[2021-01-17] MEDS: VANCOMYCIN INJ 1,250 MG in SODIUM CHLORIDE 0.9% 250 ML IV SCH (06:16)
[2021-01-17] MEDS: OMEPRAZOLE ODT 20 MG TABLET PEG SCH ×2 (06:16→21:06)
[2021-01-17] MEDS: [UNRECOGNIZED DRUG - OTHER] PEG SCH ×2 (07:07→19:41)
[2021-01-17] MEDS: NUT TX GLUC INTOL LF SOY FIBER PEG SCH ×2 (07:07→19:41)
[2021-01-17 07:40] LABS: Basophils # 0.1 10*3/uL (0.0-0.2); Basophils % 0.5 % (0.0-0.8); Eosinophils # 0.4 10*3/uL (0.0-0.87); Eosinophils % 3.8 % (0.00-10.9); Hemoglobin 7.6 GM/DL (12.0-16.0); Immature Granulocytes Absolute 0.19 #; Lymphocytes # 1.1 10*3/uL (1.4-4.0); Lymphocytes % 11.4 % (21.3-54.2); Mean Corpuscular HGB Conc 29.2 GM/DL (32-36); Mean Corpuscular Volume 78.3 FL (87-102); Mean Platelet Volume 11.7 FL (9.6-12.0); Neutrophils % 75.3 % (38.7-73.9); Platelet Count 300 T/CUMM (130-400); Red Blood Count 3.32 MC/CUMM (3.8-5.5); Red Cell Distribution Width 17.1 % (9.3-17.3); White Blood Count 9.6 T/CUMM (4-12)
[2021-01-17] MEDS ORDERED: PANTOPRAZOLE 40 MG TABLET PO SCH (09:00)
[2021-01-17] MEDS: NON-FORMULARY MEDICATION (Amino Acids-Protein Hydrolys [Pro-Stat Sugar Free] 15-100 gram-k PEG SCH ×2 (10:03→21:05)
[2021-01-17] MEDS: INSULIN LISPRO 100 UNIT/ML SUBCUT SCH ×4 (10:03→21:07)
[2021-01-17] MEDS: METHENAMINE HIPPURATE 1 GM TABLET PEG SCH ×2 (10:03→21:06)
[2021-01-17] MEDS: METOPROLOL TARTRATE 25 MG TABLET PEG SCH (10:03)
[2021-01-17] MEDS: SODIUM HYPOCHLORITE 0.25% IRRIG 473 ML BOTTLE TOP SCH (10:03)
[2021-01-17] MEDS: risperiDONE 0.5 MG TABLET PEG SCH ×2 (13:19→21:06)
[2021-01-17] MEDS: DIGOXIN 0.25 MG TABLET PEG SCH (13:20)
[2021-01-17 13:50] LABS: Hematocrit 27.5 VOL% (35.7-47.0); Hemoglobin 8.2 GM/DL (12.0-16.0)
[2021-01-17] MEDS: FERROUS SULFATE PEG SCH (14:33)
[2021-01-18] MEDS: VANCOMYCIN INJ 1,250 MG in SODIUM CHLORIDE 0.9% 250 ML IV SCH ×2 (00:58→18:08)
[2021-01-18 04:23] LABS: Basophils # 0.1 10*3/uL (0.0-0.2); Basophils % 0.6 % (0.0-0.8); Eosinophils # 0.6 10*3/uL (0.0-0.87); Eosinophils % 6.1 % (0.00-10.9); Hematocrit 26.5 VOL% (35.7-47.0); Hemoglobin 7.8 GM/DL (12.0-16.0); Immature Granulocytes % 0.4 %; Immature Granulocytes Absolute 0.04 #; Lymphocytes # 0.9 10*3/uL (1.4-4.0); Lymphocytes % 9.7 % (21.3-54.2); Mean Corpuscular HGB Conc 29.4 GM/DL (32-36); Mean Corpuscular Volume 77.3 FL (87-102); Mean Platelet Volume 9.9 FL (9.6-12.0); Neutrophils % 77.2 % (38.7-73.9); Platelet Count 278 T/CUMM (130-400); Red Blood Count 3.43 MC/CUMM (3.8-5.5); Red Cell Distribution Width 16.8 % (9.3-17.3); White Blood Count 9.7 T/CUMM (4-12)
[2021-01-18 04:42] LABS: Calcium 8.7 MG/DL (8.5-10.1); Osmolality,Calculated 281.7 MOS/KG (273-304); Potassium 4.3 MMOL/L (3.5-5.1)
[2021-01-18] MEDS: LACTATED RINGERS 1,000 ML IV SCH ×3 (05:29→21:25)
[2021-01-18] MEDS: PIPERACILLIN/TAZOBACTAM 3,375 MG in SODIUM CHLORIDE 0.9% 100 ML IV SCH ×3 (06:06→21:25)
[2021-01-18] MEDS: OMEPRAZOLE ODT 20 MG TABLET PEG SCH ×2 (06:06→21:24)
[2021-01-18] MEDS: NUT TX GLUC INTOL LF SOY FIBER PEG SCH ×2 (07:00→18:54)
[2021-01-18] MEDS: [UNRECOGNIZED DRUG - OTHER] PEG SCH ×2 (07:00→18:54)
[2021-01-18] MEDS: INSULIN LISPRO 100 UNIT/ML SUBCUT SCH ×4 (10:34→21:26)
[2021-01-18] MEDS: METHENAMINE HIPPURATE 1 GM TABLET PEG SCH ×2 (10:34→21:24)
[2021-01-18] MEDS: risperiDONE 0.5 MG TABLET PEG SCH ×2 (10:35→21:24)
[2021-01-18] MEDS: METOPROLOL TARTRATE 25 MG TABLET PEG SCH (10:35)
[2021-01-18] MEDS: SODIUM HYPOCHLORITE 0.25% IRRIG 473 ML BOTTLE TOP SCH (10:41)
[2021-01-18] MEDS: NON-FORMULARY MEDICATION (Amino Acids-Protein Hydrolys [Pro-Stat Sugar Free] 15-100 gram-k PEG SCH ×2 (11:11→21:26)
[2021-01-18] MEDS: DIGOXIN 0.25 MG TABLET PEG SCH (13:10)
[2021-01-18] MEDS: FERROUS SULFATE PEG SCH (14:46)
[2021-01-19] MEDS: PIPERACILLIN/TAZOBACTAM 3,375 MG in SODIUM CHLORIDE 0.9% 100 ML IV SCH (05:05)
[2021-01-19] MEDS: OMEPRAZOLE ODT 20 MG TABLET PEG SCH (06:03)
[2021-01-19] MEDS: LACTATED RINGERS 1,000 ML IV SCH (06:37)
[2021-01-19] MEDS: NUT TX GLUC INTOL LF SOY FIBER PEG SCH (06:38)
[2021-01-19] MEDS: [UNRECOGNIZED DRUG - OTHER] PEG SCH (06:38)
[2021-01-19] MEDS: risperiDONE 0.5 MG TABLET PEG SCH (09:49)
[2021-01-19] MEDS: METOPROLOL TARTRATE 25 MG TABLET PEG SCH (09:49)
[2021-01-19] MEDS: METHENAMINE HIPPURATE 1 GM TABLET PEG SCH (09:49)
[2021-01-19] MEDS: INSULIN LISPRO 100 UNIT/ML SUBCUT SCH (09:50)
[2021-01-19] MEDS: SODIUM HYPOCHLORITE 0.25% IRRIG 473 ML BOTTLE TOP SCH (09:50)
[2021-01-19] MEDS: NON-FORMULARY MEDICATION (Amino Acids-Protein Hydrolys [Pro-Stat Sugar Free] 15-100 gram-k PEG SCH (09:50)
[2021-01-19 12:00] VITALS: BP 139/71
== END 2021-01-19 13:00 | DRG 593 ==
LOC: EDUNIT# → N.EDINP 09:46 → N.ED 09:46 → N.TELEN 13:01
PROVIDERS: ADMIT Internal Medicine; ATTEND Internal Medicine

== ENCOUNTER 2021-02-11 19:04 | Inpatient (IN) ==
[2021-02-11] MEDS ORDERED: SODIUM CHLORIDE 0.9% 500 ML IV STA (19:49)
[2021-02-11] MEDS ORDERED: PIPERACILLIN/TAZOBACTAM 3,375 MG in SODIUM CHLORIDE 0.9% 100 ML IV STA (19:49)
[2021-02-11] MEDS ORDERED: ACETAMINOPHEN 500 MG TABLET PO STA (19:49)
[2021-02-11 20:34] LABS: Basophils % 0.2 % (0.0-0.8); Eosinophils # 0.2 10*3/uL (0.0-0.87); Eosinophils % 1.7 % (0.00-10.9); Hematocrit 27.1 VOL% (35.7-47.0); Hemoglobin 8.1 GM/DL (12.0-16.0); Immature Granulocytes % 0.4 %; Immature Granulocytes Absolute 0.05 #; Lymphocytes # 0.8 10*3/uL (1.4-4.0); Lymphocytes % 6.8 % (21.3-54.2); Mean Corpuscular HGB Conc 29.9 GM/DL (32-36); Mean Corpuscular Volume 74.7 FL (87-102); Monocytes % 6.8 % (1.7-12.7); Neutrophils % 84.1 % (38.7-73.9); Platelet Count 227 T/CUMM (130-400); Red Blood Count 3.63 MC/CUMM (3.8-5.5); Red Cell Distribution Width 17.3 % (9.3-17.3); White Blood Count 11.7 T/CUMM (4-12)
[2021-02-11 20:55] LABS: Alanine Aminotransferase 15 U/L (13-56); Albumin 1.9 G/DL (3.4-5.0); Alkaline Phosphatase 62 U/L (45-117); Amylase 15 U/L (25-115); Aspartate Amino Transferase 13 U/L (0-37); Blood Urea Nitrogen 32 MG/DL (7-18); Calcium 8.7 MG/DL (8.5-10.1); Carbon Dioxide 34 MMOL/L (21-32); Glucose 165 MG/DL (74-106); Osmolality,Calculated 274.5 MOS/KG (273-304); Potassium 4.5 MMOL/L (3.5-5.1); Sodium 132 MMOL/L (136-145); Total Protein 5.6 G/DL (6.4-8.2)
[2021-02-11 20:56] LABS: Estimated Glom Filtration Rate 0 ML/MIN
[2021-02-11 21:04] LABS: Bilirubin,Urine Negative (Negative); Blood, Urine Negative (Negative); Glucose,Urine (UA) Negative (Negative); Ketones,Urine Negative (Negative); Nitrite,Urine Negative (Negative); Protein,Urine Negative; Renal Epithelial Cells,Urine Occasional /HPF (<1); Squamous Epithelial Cell,Urine Occasional /HPF (0-10); Urine Appearance CLEAR (Clear); Urine Color Yellow (Yellow); Urine Specific Gravity 1.009 (1.001-1.035)
[2021-02-11] MEDS ORDERED: ONDANSETRON 4 MG/2 ML VIAL IV PRN (23:28)
[2021-02-11] MEDS ORDERED: GLUCAGON 1 MG VIAL IM PRN (23:28)
[2021-02-11] MEDS ORDERED: DEXTROSE 50% 25 GM/50 ML VIAL IV PRN (23:28)
[2021-02-12] MEDS ORDERED: VANCOMYCIN INJ 2,000 MG in SODIUM CHLORIDE 0.9% 500 ML IV ONE (02:00)
[2021-02-12] MEDS ORDERED: VANCOMYCIN 1,000 MG VIAL ONE (02:56)
[2021-02-12] MEDS: ENOXAPARIN 40 MG/0.4 ML SYRINGE SUBCUT SCH (03:18)
[2021-02-12 03:49] LABS: Bilirubin,Total 0.4 MG/DL (0.20-1.00); Calcium 9.3 MG/DL (8.5-10.1); Osmolality,Calculated 270.5 MOS/KG (273-304); Potassium 4.1 MMOL/L (3.5-5.1); Total Protein 6.6 G/DL (6.4-8.2)
[2021-02-12] MEDS ORDERED: VANCOMYCIN INJ 1,250 MG in SODIUM CHLORIDE 0.9% 250 ML IV SCH (04:00)
[2021-02-12 04:24] LABS: Basophils % 0.2 % (0.0-0.8); Eosinophils # 0.5 10*3/uL (0.0-0.87); Eosinophils % 3.4 % (0.00-10.9); Hematocrit 28.5 VOL% (35.7-47.0); Hemoglobin 8.5 GM/DL (12.0-16.0); Immature Granulocytes % 0.4 %; Immature Granulocytes Absolute 0.05 #; Lymphocytes % 7.6 % (21.3-54.2); Mean Corpuscular HGB Conc 29.8 GM/DL (32-36); Mean Corpuscular Volume 75.6 FL (87-102); Mean Platelet Volume 11.3 FL (9.6-12.0); Monocytes % 6.7 % (1.7-12.7); Neutrophils % 81.7 % (38.7-73.9); Red Blood Count 3.77 MC/CUMM (3.8-5.5); Red Cell Distribution Width 17.4 % (9.3-17.3); White Blood Count 13.3 T/CUMM (4-12)
[2021-02-12 04:25] LABS: Platelet Count 300 T/CUMM (130-400)
[2021-02-12] MEDS ORDERED: NOREPINEPHRINE 4 MG/4 ML VIAL IV ONE (05:34)
[2021-02-12] MEDS ORDERED: SODIUM CHLORIDE 0.9% 1,000 ML IV STA (05:35)
[2021-02-12] MEDS: NOREPINEPHRINE 8 MG in SODIUM CHLORIDE 0.9% 242 ML IV PRN (05:40)
[2021-02-12] MEDS ORDERED: OMEPRAZOLE ODT 20 MG TABLET PEG SCH (06:00)
[2021-02-12] MEDS: PIPERACILLIN/TAZOBACTAM 3,375 MG in SODIUM CHLORIDE 0.9% 100 ML IV SCH ×3 (06:26→20:59)
[2021-02-12 06:30] LABS: ABG Base Excess 1.3 MMOL/L (-2.5-2.5); ABG HCO3 25.6 MMOL/L (20-26); ABG PCO2 31.1 MM HG (35-48); ABG TCO2 22.9 MMOL/L (23-27)
[2021-02-12] MEDS ORDERED: risperiDONE 0.5 MG TABLET PEG SCH (08:00)
[2021-02-12] MEDS ORDERED: METOPROLOL TARTRATE 25 MG TABLET PEG SCH (08:00)
[2021-02-12] MEDS ORDERED: METHENAMINE HIPPURATE 1 GM TABLET PEG SCH (08:00)
[2021-02-12] MEDS ORDERED: DIGOXIN 0.125 MG TABLET PEG SCH (08:00)
[2021-02-12 09:29] LABS: Alanine Aminotransferase 14 U/L (13-56); Albumin 1.9 G/DL (3.4-5.0); Alkaline Phosphatase 62 U/L (45-117); Aspartate Amino Transferase 11 U/L (0-37); Blood Urea Nitrogen 29 MG/DL (7-18); Calcium 9.2 MG/DL (8.5-10.1); Carbon Dioxide 35 MMOL/L (21-32); Estimated Glom Filtration Rate 109 ML/MIN; Glucose 129 MG/DL (74-106); Osmolality,Calculated 277.1 MOS/KG (273-304); Potassium 4.6 MMOL/L (3.5-5.1); Sodium 135 MMOL/L (136-145); Total Protein 6.2 G/DL (6.4-8.2)
[2021-02-12] MEDS: PANTOPRAZOLE 40 MG VIAL IV SCH (12:02)
[2021-02-12] MEDS: NON-FORMULARY MEDICATION (Saliva Substitute Combo No.9 [Biotene Dry Mouth Oral Rinse] Mout PO SCH ×2 (12:09→15:57)
[2021-02-12] MEDS: INSULIN GLARGINE 100 UNIT/ML SUBCUT SCH (12:09)
[2021-02-12] MEDS: guaiFENesin 200 MG/10 ML UDCUP PO SCH ×2 (12:13→15:57)
[2021-02-12] MEDS: NON-FORMULARY MEDICATION (Amino Acids-Protein Hydrolys [Pro-Stat Sugar Free] 15-100 gram-k PEG SCH ×2 (12:16→20:23)
[2021-02-12] MEDS: INSULIN REGULAR 100 UNIT/ML SUBCUT SCH ×2 (12:33→19:16)
[2021-02-12] MEDS: DOCUSATE SODIUM 100 MG/10 ML UDCUP PEG SCH (12:49)
[2021-02-12] MEDS: SODIUM CHLORIDE 0.9% 1,000 ML IV SCH ×2 (12:51→16:24)
[2021-02-12 15:26] LABS: ABG Base Excess 2.5 MMOL/L (-2.5-2.5); ABG HCO3 26.7 MMOL/L (20-26); ABG Oxygen Saturation 99.9 % (95-100); ABG PCO2 38.5 MM HG (35-48); ABG PH 7.447 (7.35-7.45)
[2021-02-12 16:21] LABS: Basophils % 0.1 % (0.0-0.8); Eosinophils % 0.1 % (0.00-10.9); Hematocrit 22.5 VOL% (35.7-47.0); Hemoglobin 6.6 GM/DL (12.0-16.0); Immature Granulocytes Absolute 0.18 #; Lymphocytes # 0.8 10*3/uL (1.4-4.0); Lymphocytes % 4.1 % (21.3-54.2); Mean Corpuscular HGB Conc 29.3 GM/DL (32-36); Mean Corpuscular Volume 75.5 FL (87-102); Mean Platelet Volume 10.9 FL (9.6-12.0); Monocytes % 4.4 % (1.7-12.7); Neutrophils % 90.3 % (38.7-73.9); Platelet Count 282 T/CUMM (130-400); Red Blood Count 2.98 MC/CUMM (3.8-5.5); Red Cell Distribution Width 17.6 % (9.3-17.3); White Blood Count 18.1 T/CUMM (4-12)
[2021-02-12] MEDS: FERROUS SULFATE PEG SCH (16:23)
[2021-02-12] MEDS: VANCOMYCIN INJ 1,250 MG in SODIUM CHLORIDE 0.9% 250 ML IV SCH (16:24)
[2021-02-12 16:36] LABS: INR 1.1; PT Patient Result 12.3 SECS (10.5-12.0); Partial Thromboplastin Time 33.9 SECS (23.8-32.1)
[2021-02-12] MEDS ORDERED: SODIUM CHLORIDE 0.9% 1,000 ML IV PRN (16:37)
[2021-02-12 16:47] LABS: Lactic Acid 3.4 MMOL/L (0.4-2.0)
[2021-02-12] MEDS ORDERED: PNEUMOCOCCAL VACCINE (13 VALENT) 0.5 ML SYRINGE IM ONE (16:57)
[2021-02-12 17:05] LABS: % Iron Saturation 4.9 % (18-50); Ferritin 376.3 ng/mL (8-252)
[2021-02-12] MEDS ORDERED: INSULIN GLARGINE 100 UNIT/ML SUBCUT ONE (17:14)
[2021-02-12 17:26] LABS: Alanine Aminotransferase 219 U/L (13-56); Albumin 1.7 G/DL (3.4-5.0); Alkaline Phosphatase 63 U/L (45-117); Aspartate Amino Transferase 254 U/L (0-37); Bilirubin,Total < 0.39 MG/DL (0.20-1.00); Blood Urea Nitrogen 41 MG/DL (7-18); Carbon Dioxide 27 MMOL/L (21-32); Estimated Glom Filtration Rate 45 ML/MIN; Glucose 308 MG/DL (74-106); Osmolality,Calculated 289.2 MOS/KG (273-304); Potassium 4.7 MMOL/L (3.5-5.1); Sodium 134 MMOL/L (136-145); Total Protein 5.6 G/DL (6.4-8.2)
[2021-02-12 17:42] LABS: Band Neutrophils 1 % (0-10); Hypochromasia 2+; Lymphocytes 2 % (20-55); Microcytosis 2+; Platelet Estimate Increased; Segmented Neutrophils 95 % (50-85); Total Cells Counted 100
[2021-02-12] MEDS ORDERED: INSULIN REGULAR 100 UNIT/ML SUBCUT SCH (18:00)
[2021-02-13] MEDS: INSULIN REGULAR 100 UNIT/ML SUBCUT SCH ×7 (00:20→22:06)
[2021-02-13 00:49] LABS: Hemoglobin 8.3 GM/DL (12.0-16.0)
[2021-02-13] MEDS: ENOXAPARIN 40 MG/0.4 ML SYRINGE SUBCUT SCH (01:08)
[2021-02-13] MEDS: SODIUM CHLORIDE 0.9% 1,000 ML IV SCH ×2 (02:16→13:16)
[2021-02-13 04:58] LABS: ABG Base Excess 2.6 MMOL/L (-2.5-2.5); ABG HCO3 26.7 MMOL/L (20-26); ABG Oxygen Saturation 99.2 % (95-100); ABG PCO2 33.5 MM HG (35-48); ABG PH 7.493 (7.35-7.45); ABG TCO2 23.8 MMOL/L (23-27)
[2021-02-13] MEDS: PIPERACILLIN/TAZOBACTAM 3,375 MG in SODIUM CHLORIDE 0.9% 100 ML IV SCH ×3 (05:00→22:15)
[2021-02-13] MEDS: VANCOMYCIN INJ 1,250 MG in SODIUM CHLORIDE 0.9% 250 ML IV SCH (05:00)
[2021-02-13 05:09] LABS: Basophils # 0.1 10*3/uL (0.0-0.2); Basophils % 0.4 % (0.0-0.8); Eosinophils # 0.1 10*3/uL (0.0-0.87); Eosinophils % 0.5 % (0.00-10.9); Hematocrit 26.2 VOL% (35.7-47.0); Hemoglobin 8.1 GM/DL (12.0-16.0); Immature Granulocytes % 1.1 %; Immature Granulocytes Absolute 0.21 #; Lymphocytes # 1.1 10*3/uL (1.4-4.0); Mean Corpuscular HGB Conc 30.9 GM/DL (32-36); Mean Platelet Volume 10.6 FL (9.6-12.0); Monocytes % 7.5 % (1.7-12.7); Neutrophils % 84.5 % (38.7-73.9); Platelet Count 284 T/CUMM (130-400); Red Blood Count 3.36 MC/CUMM (3.8-5.5); Red Cell Distribution Width 17.8 % (9.3-17.3); White Blood Count 18.8 T/CUMM (4-12)
[2021-02-13 05:33] LABS: Albumin 1.7 G/DL (3.4-5.0); Bilirubin,Total 0.6 MG/DL (0.20-1.00); Calcium 8.8 MG/DL (8.5-10.1); Osmolality,Calculated 284.8 MOS/KG (273-304); Potassium 3.8 MMOL/L (3.5-5.1); Total Protein 5.4 G/DL (6.4-8.2)
[2021-02-13] MEDS ORDERED: ASPIRIN EC 81 MG TABLET PO SCH (09:00)
[2021-02-13] MEDS ORDERED: LORazepam 2 MG/1 ML VIAL IV ONE ×2 (09:08→18:11)
[2021-02-13] MEDS ORDERED: SODIUM CHLORIDE 0.9% 250 ML IV ONE (09:39)
[2021-02-13] MEDS ORDERED: LORazepam 2 MG/1 ML VIAL ONE ×2 (10:01→18:09)
[2021-02-13] MEDS ORDERED: BISACODYL 10 MG SUPP RECTAL ONE (10:01)
[2021-02-13] MEDS: PANTOPRAZOLE 40 MG VIAL IV SCH (10:19)
[2021-02-13] MEDS: NON-FORMULARY MEDICATION (Amino Acids-Protein Hydrolys [Pro-Stat Sugar Free] 15-100 gram-k PEG SCH ×2 (10:19→21:56)
[2021-02-13] MEDS: DOCUSATE SODIUM 100 MG/10 ML UDCUP PEG SCH (10:19)
[2021-02-13] MEDS: INSULIN GLARGINE 100 UNIT/ML SUBCUT SCH (10:20)
[2021-02-13] MEDS: SODIUM HYPOCHLORITE 0.25% IRRIG 473 ML BOTTLE TOP SCH (10:20)
[2021-02-13 10:38] LABS: Free T4 (Free Thyroxine) 1.64 NG/DL (0.76-1.46); Thyroid Stimulating Hormone 0.87 uIU/ml (0.358-3.74)
[2021-02-13 11:54] LABS: Basophils # 0.1 10*3/uL (0.0-0.2); Basophils % 0.3 % (0.0-0.8); Eosinophils # 0.3 10*3/uL (0.0-0.87); Eosinophils % 1.6 % (0.00-10.9); Hematocrit 21.5 VOL% (35.7-47.0); Hemoglobin 6.7 GM/DL (12.0-16.0); Immature Granulocytes % 0.7 %; Immature Granulocytes Absolute 0.11 #; Lymphocytes # 0.7 10*3/uL (1.4-4.0); Lymphocytes % 4.2 % (21.3-54.2); Mean Corpuscular HGB Conc 31.2 GM/DL (32-36); Mean Corpuscular Volume 79.3 FL (87-102); Mean Platelet Volume 10.9 FL (9.6-12.0); Monocytes % 6.6 % (1.7-12.7); Neutrophils % 86.6 % (38.7-73.9); Platelet Count 227 T/CUMM (130-400); Red Blood Count 2.71 MC/CUMM (3.8-5.5); Red Cell Distribution Width 17.9 % (9.3-17.3); White Blood Count 15.5 T/CUMM (4-12)
[2021-02-13 12:26] LABS: Atypical Lymphocytes Few; Eosinophils 5 % (0-10); Hypochromasia 3+; Lymphocytes 2 % (20-55); Microcytosis 3+; Ovalocytes Few; Polychromasia Slight; Segmented Neutrophils 91 % (50-85); Total Cells Counted 100
[2021-02-13 12:28] LABS: Platelet Estimate Adequate; Tear Drop Cells Few
[2021-02-13] MEDS ORDERED: SODIUM CHLORIDE 0.9% 1,000 ML IV PRN (13:30)
[2021-02-13] MEDS: LACTATED RINGERS 1,000 ML IV SCH (14:45)
[2021-02-13] MEDS: FERROUS SULFATE PEG SCH (17:44)
[2021-02-13 17:47] LABS: Folate > 24.00 NG/ML (5.38-24.0); Vitamin B12 457 PG/ML (211-911)
[2021-02-13] MEDS: MIDAZOLAM 100 MG in SODIUM CHLORIDE 0.9% 80 ML IV PRN (18:24)
[2021-02-14] MEDS: ENOXAPARIN 40 MG/0.4 ML SYRINGE SUBCUT SCH (00:55)
[2021-02-14] MEDS: INSULIN REGULAR 100 UNIT/ML SUBCUT SCH ×5 (01:43→17:15)
[2021-02-14 04:13] LABS: ABG Base Excess 1.6 MMOL/L (-2.5-2.5); ABG HCO3 25.9 MMOL/L (20-26); ABG Oxygen Saturation 99.2 % (95-100); ABG PCO2 31.8 MM HG (35-48); ABG PH 7.495 (7.35-7.45); ABG TCO2 22.4 MMOL/L (23-27)
[2021-02-14 04:46] LABS: Basophils # 0.1 10*3/uL (0.0-0.2); Basophils % 0.6 % (0.0-0.8); Eosinophils % 7.7 % (0.00-10.9); Hematocrit 29.3 VOL% (35.7-47.0); Immature Granulocytes % 0.5 %; Immature Granulocytes Absolute 0.06 #; Lymphocytes # 1.1 10*3/uL (1.4-4.0); Lymphocytes % 8.5 % (21.3-54.2); Mean Corpuscular HGB Conc 31.1 GM/DL (32-36); Mean Corpuscular Volume 79.6 FL (87-102); Mean Platelet Volume 9.8 FL (9.6-12.0); Monocytes % 5.6 % (1.7-12.7); Neutrophils % 77.1 % (38.7-73.9); Platelet Count 236 T/CUMM (130-400); Red Cell Distribution Width 18.1 % (9.3-17.3); White Blood Count 13.3 T/CUMM (4-12)
[2021-02-14 04:51] LABS: Red Blood Count 3.68 MC/CUMM (3.8-5.5)
[2021-02-14 04:52] LABS: Hemoglobin 9.1 GM/DL (12.0-16.0)
[2021-02-14 04:59] LABS: Calcium 8.3 MG/DL (8.5-10.1); Osmolality,Calculated 295.1 MOS/KG (273-304); Potassium 3.7 MMOL/L (3.5-5.1)
[2021-02-14] MEDS ORDERED: VANCOMYCIN INJ 1,250 MG in SODIUM CHLORIDE 0.9% 250 ML IV SCH ×2 (05:00→10:00)
[2021-02-14] MEDS: PIPERACILLIN/TAZOBACTAM 3,375 MG in SODIUM CHLORIDE 0.9% 100 ML IV SCH ×2 (05:07→13:45)
[2021-02-14] MEDS ORDERED: MORPHINE 2 MG/1 ML SYRINGE IV PRN (06:07)
[2021-02-14 06:42] VITALS: BP 119/46
[2021-02-14] MEDS: MIDAZOLAM 100 MG in SODIUM CHLORIDE 0.9% 80 ML IV PRN (07:10)
[2021-02-14] MEDS: LACTATED RINGERS 1,000 ML IV SCH ×3 (11:01→17:15)
[2021-02-14] MEDS: NON-FORMULARY MEDICATION (Amino Acids-Protein Hydrolys [Pro-Stat Sugar Free] 15-100 gram-k PEG SCH (11:03)
[2021-02-14] MEDS: DOCUSATE SODIUM 100 MG/10 ML UDCUP PEG SCH (11:03)
[2021-02-14] MEDS: SODIUM HYPOCHLORITE 0.25% IRRIG 473 ML BOTTLE TOP SCH (11:04)
[2021-02-14] MEDS: INSULIN GLARGINE 100 UNIT/ML SUBCUT SCH (11:04)
[2021-02-14] MEDS: PANTOPRAZOLE 40 MG VIAL IV SCH (11:04)
[2021-02-14] MEDS: NOREPINEPHRINE 8 MG in SODIUM CHLORIDE 0.9% 242 ML IV PRN (13:56)
[2021-02-14] MEDS: FERROUS SULFATE PEG SCH (14:36)
[2021-02-14] MEDS ORDERED: LORazepam 2 MG/1 ML VIAL ONE (17:57)
[2021-02-14] MEDS: LORazepam 2 MG/1 ML VIAL IV PRN ×6 (18:03→23:24)
[2021-02-14] MEDS: MORPHINE 2 MG/1 ML SYRINGE IV PRN ×5 (19:28→23:23)
[2021-02-15] MEDS: MORPHINE 2 MG/1 ML SYRINGE IV PRN ×5 (00:19→03:16)
[2021-02-15] MEDS: LORazepam 2 MG/1 ML VIAL IV PRN ×5 (00:20→03:16)
== END 2021-02-15 04:02 | disposition expired | DRG 853 ==
LOC: EDUNIT# → EDBD → N.ED 19:04 → N.EDINP 23:28 → SUATTDRO 23:28 → N.CC 02-12 14:19
PROVIDERS: ADMIT Internal Medicine; ATTEND Internal Medicine